=== PATIENT | female | born 1995 | race Caucasian/White ===

== ENCOUNTER 2020-08-27 14:20 | Emergency (ER) | payer OTHER, SELFPAY ==
[2020-08-27 14:25] VITALS: BP 164/92; PULSE 80; RESP 14; O2SAT 99
[2020-08-27 15:07] LABS: SARS-CoV-2 Ag Negative (Negative)
--- NOTE | 2020-08-27 15:19 | ED.URI ---
HPI - URI/Sore Throat General Chief Complaint: Upper Respiratory Infection Stated Complaint: fever body ache cough sore throat Source: patient Mode of arrival: ambulatory Limitations: no limitations History of Present Illness HPI Narrative: Pt presents to ed with fever body aches, sore thraot and myalgias. Pt family and are covid positive. MD elicited complaint: fever, cough and sore throat Onset (ago): minute(s) Exacerbating factors: nothing Relieving factors: nothing Context: sick contacts Associated symptoms: fever, chills, myalgias, headache, sore throat and cough Treatments prior to arrival: acetaminophen Related Data Home Medications Medication Instructions Recorded Confirmed No Home Medications 08/27/20 08/27/20 Allergies Allergy/AdvReac Type Severity Reaction Status Date / Time No Known Allergies Allergy Verified 08/27/20 15:08 Review of Systems Review of Systems: All systems reviewed & are unremarkable except as noted in HPI and below Constitutional: Constitutional: Reports chills, Reports fatigue and Reports fever(s) ENT: Reports sore throat Cardiovascular: Cardiovascular: Reports no additional cardiovascular complaints Respiratory: Respiratory: Denies chest congestion, Reports cough, Denies dyspnea and Denies wheezing Gastrointestinal: Gastrointestinal: Reports no additional gastrointestinal complaints Genitourinary: Genitourinary: Reports no additional female genitourinary complaints Musculoskeletal: Musculoskeletal: Reports myalgias Neurologic: Reports as per HPI Psychiatric: Psychiatric: Reports no additional psychiatric complaints Endocrine: Endocrine: Reports no additional endocrine complaints Hematologic/Lymphatic: Hematologic/Lymphatic: Reports no additional hematologic/lymphatic complaints Allergic/Immunologic: Allergic/Immunologic: Reports no additional allergic/immunologic complaints PMFSH Social History Social History (Updated 08/27/20 @ 15:22 by Ceci Feliciano MD) Smoking packs per day: 0.5 Smoking cigarettes per day: 10.0 Smoking status: Current every day smoker Alcohol intake: never Substance use: never Exam Const: General: healthy appearing, no acute distress and alert Nutritional Appearance: well nourished and thin Orientation/consciousness: patient oriented x3 HENMT: Head: normal to inspection Eyes: Conjunctivae: conjunctivae normal Pupils: Equal, round and reactive pupils present Neck: Neck: normal visual inspection Chest: Chest palpation & inspection: normal inspection of the chest Resp: Effort & Inspection: normal respiratory effort Auscultation: clear to auscultation bilaterally Cardio: Rate: regular rate Rhythm: regular rhythm GI: GI Palp: Yes Soft to palpation, No Tenderness to palpation present (GI) and No Guarding due to palpation present (GI) Auscultation: normal bowel sounds : General: Yes no CVA tenderness Back/Spine/Pelvis: Back: no CVA tenderness Skin: General skin exam: normal color Neuro: General: patient oriented x3 and moves all extremities Gait exam (Neuro): Normal gait present Extrem: General: normal to inspection Psych: Appearance: grossly normal Mental Status: mental status grossly normal Thought content: Yes Normal thought content present Course Vital Signs Vital signs: Vital Signs Pulse Rate 80 08/27/20 14:25 Respiratory Rate 14 08/27/20 14:25 Blood Pressure 164/92 H 08/27/20 14:25 Pulse Oximetry 99 08/27/20 14:25 Pulse Rate 80 08/27/20 14:25 Respiratory Rate 14 08/27/20 14:25 Blood Pressure 164/92 H 08/27/20 14:25 Pulse Oximetry 99 08/27/20 14:25 MDM - URI/Sore Throat Differential Diagnosis Differential diagnosis: Likely upper respiratory infection (COVID is likely ) Lab Data Attestation: I reviewed the patient's lab results. Labs: Lab Results 08/27/20 Range/Units 14:40 SARS-CoV-2 Ag (Rapid) Negative (Negative) Discharg
[2020-08-27 15:20] VITALS: RESP 16
== END 2020-08-27 15:20 | disposition home or self-care (01) ==
PROVIDERS: Emergency Provider Emergency Medicine; PCP Family Medicine
DX: B34.9 Viral infection, unspecified (principal)
CPT/HCPCS: 87426; 99282

== ENCOUNTER 2021-02-24 06:26 | Outpatient (CLI) | payer OTHER, SELFPAY ==
[2021-02-24 06:41] LABS: Hematocrit 43.3 % (35.0-49.0); Hemoglobin 14.3 g/dL (12.0-15.0); Mean Corpuscular Hemoglobin 30.7 pg (27.0-31.0); Mean Corpuscular Volume 92.9 fL (78.0-102.0); Mean Platelet Volume 10.4 fl (9.2-11.8); Platelet Count Result 194 K/mm3 (150-420); Red Blood Count 4.66 M/mm3 (4.20-5.40); Red Cell Distribution Width 12.4 % (11.6-14.4); White Blood Count 8.2 K/mm3 (4.8-10.8)
[2021-02-24 07:35] LABS: Alanine Aminotransferase 18 U/L (14-59); Albumin Level 4.4 g/dL (3.4-5.0); Alkaline Phosphatase 83 U/L (46-116); Anion Gap 9 mmol/L (8-16); Aspartate Amino Transferase 11 U/L (15-37); Bilirubin,Total 0.8 mg/dL (0.00-1.00); Blood Urea Nitrogen 9 mg/dL (7-18); Calcium 9.3 mg/dL (8.5-10.1); Carbon Dioxide 29 mmol/L (21-32); Chloride 101 mmol/L (98-108); Estimated Glomerular Filt Rate > 60; Glucose 103 mg/dL (70-99); Osmolality Calculated 286 mOsm/kg (285-295); Potassium 4.3 mmol/L (3.5-5.1); Sodium 139 mmol/L (136-145); Total Protein 7.2 g/dL (6.4-8.2)
== END 2021-02-24 06:27 | disposition home or self-care (01) ==
LOC: CHSLAB 06:29
PROVIDERS: PCP Family Medicine; Visit Provider Family Medicine
DX: F17.210 Nicotine dependence, cigarettes, uncomplicated (principal)
CPT/HCPCS: 36415; 80053; 85027

== ENCOUNTER 2021-04-18 13:42 | Outpatient (CLI) | payer OTHER, SELFPAY ==
--- NOTE | 2021-04-18 13:51 | PC.NURSE ---
ambulatory for IV meds for migrane, taken to room 201 for infusion
[2021-04-18] MEDS: diphenhydrAMINE HCl INJ 50 MG/ML VIAL IV PUSH (14:06)
[2021-04-18] MEDS: PROCHLORPERAZINE EDISYLATE 10 MG/2 ML VIAL IV PUSH (14:06)
[2021-04-18] MEDS: SODIUM CHLORIDE 0.9% IV 1,000 ML 1000 ML IVPB (14:06)
== END 2021-04-18 13:43 | disposition home or self-care (01) ==
LOC: CHSTREATRM 13:45
PROVIDERS: PCP Family Medicine; Visit Provider Family Medicine
DX: G43.909 Migraine, unspecified, not intractable, without status migrainosus (principal)
CPT/HCPCS: 96361; 96374; 96375; J0780

== ENCOUNTER 2021-10-16 13:45 | Outpatient (CLI) | payer OTHER, SELFPAY ==
[2021-10-16 15:02] LABS: SARS-CoV-2 Ag Negative (Negative)
== END 2021-10-16 13:46 | disposition home or self-care (01) ==
PROVIDERS: PCP Family Medicine; Visit Provider Family Medicine
DX: Z20.822 Contact with and (suspected) exposure to COVID-19 (principal)
CPT/HCPCS: 87426; C9803

== ENCOUNTER 2022-03-31 13:10 | Outpatient (NON) | payer OTHER, SELFPAY | END 2022-03-31 13:11 | disposition home or self-care (01) | LOC: CHSLAB 13:15 | PROVIDERS: PCP Nurse Practitioner Family; Visit Provider Nurse Practitioner Family | DX: Z12.4 Encounter for screening for malignant neoplasm of cervix (principal) | CPT/HCPCS: 87624; 87625; 88141; 88175; G0145 ==

== ENCOUNTER 2022-05-12 10:28 | Outpatient (CLI) | payer OTHER, SELFPAY ==
--- NOTE | ~2022-05-12 | US_ITS ---
EXAMINATION: US pelvic complete w TV DATE: 05/12/2022 12:12 INDICATION: Pelvic pain. TECHNIQUE: Multiple transabdominal and transvaginal sonographic images of the pelvis were obtained. COMPARISON: None. FINDINGS: TRANSABDOMINAL ULTRASOUND: The uterus measures 8.3 x 5.2 x 3.9 cm. There is physiologic free fluid in the pelvis. TRANSVAGINAL ULTRASOUND: The endometrial complex measures 4 mm in thickness. There is an intrauterine device in expected posit ion. The right ovary measures 4.7 x 2.4 x 3.2 cm. The left ovary measures 3.7 x 2.0 x 2.7 cm. There i s normal vascular flow in the ovaries. IMPRESSION: 1. Intrauterine device in expected position. Reviewed, dictated and finalized at location A.
== END 2022-05-12 10:29 | disposition home or self-care (01) ==
LOC: CHSIMG 10:31
PROVIDERS: PCP Family Medicine; Visit Provider Nurse Practitioner Family
DX: R10.30 Lower abdominal pain, unspecified (principal)
CPT/HCPCS: 76830; 76856

== ENCOUNTER 2022-05-12 17:37 | Outpatient (CLI) | payer OTHER, SELFPAY ==
[2022-05-12 17:51] LABS: Add Urine Microscopic? NO; Appearance Urine Clear (Clear); Bilirubin Urine Negative (Negative); Blood Urine Negative (Negative); Color Urine Yellow (Yellow); Glucose Urine UA Negative (Negative); Ketones Urine Negative (Negative); Leukocyte Esterase Ur Negative (Negative); Nitrate Urine Negative (Negative); Protein Urine Negative (Negative); Specific Grav Ur 1.015 (1.010-1.020)
== END 2022-05-12 17:38 | disposition home or self-care (01) ==
LOC: CHSLAB 17:39
PROVIDERS: PCP Family Medicine; Visit Provider Nurse Practitioner Family
DX: R10.30 Lower abdominal pain, unspecified (principal)
CPT/HCPCS: 81003

== ENCOUNTER 2022-06-23 02:01 | Day surgery (SDC) | payer OTHER, SELFPAY ==
[2022-06-16 17:40] VITALS: BMI 18.1
--- NOTE | 2022-06-16 17:59 | PC.NURSE ---
Report to the Outpatient Waiting Room, entrance under the green pavilion located off [facility], at time 0600 on date 06/23/22. OR Time: 0730. Time changes happen often and if your time is changed the preop area will call you the afternoon before. - You and your visitor will be asked to self-screen and do not enter if you have any COVID symptoms. - Only one visitor and NO children visitors are allowed at this time. - The patient visitor is requested to leave or wait in car when not with patient due to restrictions. - A mask is required within the hospital. Patients may have clear liquids (water, carbonated beverages, clear teas, apple juice) until 3 hours prior to surgery with a maximum of 20 ounces 0430. - No food from midnight until time of surgery - Infants may have breast milk until 4 hours before surgery, formula 6 hours prior to surgery. - Children will be allowed to drink immediately following surgery. If applicable, please bring a bottle or sippy cup to assist with drinking. Juice, water, soda, and popsicles are readily available. For infants on formula, please bring formula the day of surgery. Pacifiers are allowed. Take the following medications with a SIP of water the morning of surgery: bupropion, hydroxyzine, tylenol Medications to discontinue per physician n/a Date to take last dose check with Dr. Smith regarding ibuprofen Please no make-up, nail kyrgyz, hairspray, perfume, deodorant, or body powder the day of surgery. No jewelry (including any body piercings) or valuables the day of surgery, leave them at home. Please take a shower or bath the night before, or the morning of, surgery with an antibacterial soap. Wear comfortable, loose fitting clothing. Children are encouraged to wear pajamas. - Jewelry must be removed prior to entering the operating room. Rings and piercings that are not removed may be cut off. - The hospital will not accept responsibility for valuables. - Please leave all valuables, including medications, at home the day of surgery. If you are going home after surgery, a licensed regional truck driver must drive you home. - NO public transportation without another adult. - We recommend that an adult stay with you for 24 hours following discharge. - We also recommend that you do not drive, make important decision, drink alcoholic beverages, or take any drugs that were not prescribed by your health care provider for at least 24 hours after your discharge time. For Pediatric surgeries, we recommend two adults accompany the child home (only one inside the building at this time). Follow any additional instructions given to you from your surgeon. If you or anyone in your household have experienced Covid symptoms in the past week, please notify your surgeon or the nurse liaison at the phone number below for possible testing. Telephone instructions given to Susan Kuo and asked if any additional questions and then verbalized understanding. Patient advised to call surgeon office or pre surgery nurse liaison [phone] if any additional questions.
--- NOTE | 2022-06-22 12:25 | P.PNAN_ITS ---
Anes - Initial Pre Proc Eval Procedure: Operation Date: 06/23/22 07:30 Proposed Procedures p Loop Electrical Excision Procedure - Bren Smith MD Date/Time: 06/22/22 12:25 Surgeon: Bren Smith MD Pre Op Diagnosis: ADELAIDA 1 Patient Data Age: 26 Gender: F Height: 1.73 m Weight: 54 kg Allergies Allergy/AdvReac Type Severity Reaction Status Date / Time No Known Allergies Allergy Verified 06/16/22 17:35 Home Medications Medication Instructions Recorded Confirmed Type levonorgestrel 20 mcg/24 hours (7 1 device intrauterine ONCE 12/11/20 06/16/22 History yrs) 52 mg intrauterine device (Mirena) bupropion HCl 150 mg tablet,12 hr 150 mg PO BID #60 tabs 04/27/22 06/16/22 Rx sustained-release hydroxyzine HCl 25 mg tablet 25 mg PO BID PRN Anxiety #60 tabs 04/27/22 06/16/22 Rx acetaminophen 325 mg capsule 1,000 mg PO DAILY PRN Migraine 06/16/22 06/16/22 History (Tylenol) Headache ibuprofen 200 mg tablet 600 mg PO Q6H PRN Migraine Headache 06/16/22 06/16/22 History Patient hx anesthesia problems: none Family hx anesthesia problems: none Results Review: All pre-operative results and documents have been reviewed as part of the pre- operative evaluation. [facility] Past Medical History Medical History Anxiety HPV test positive LGSIL (low grade squamous intraepithelial dysplasia) Migraine Vaginal delivery x 2 Surgical History Surgical History History of colposcopy with cervical biopsy Family History Family History Grandparent History of kidney cancer Diabetes mellitus COPD (chronic obstructive pulmonary disease) CHF (congestive heart failure) Social History Social History Smoking packs per day: 0.5 Smoking cigarettes per day: 10.0 Years smoked: 6 Smoking pack-years: 3.00 Smoking status: Current every day smoker Tobacco type: cigarettes Alcohol intake: current Drinks per week: 2 Substance use: never Substance use type: does not use Living arrangements: with family Spiritual care concerns: No Agree to blood products: Yes Anes - Eval Final PreProcedure Day of Procedure 06/22/22 12:25 Patient weight: normal Heart: regular rate and rhythm Lungs: clear to auscultation and normal air movement Airway: Mallampati scale class II Neurological: alert and oriented Last oral intake: >/= 8 hours ASA classification: II Emergent: no Anesthetic plan: proceed Anesthesia type and monitoring: general GIVS Results Review: All pre-operative results and documents have been reviewed as part of the pre- operative evaluation. Informed Consent: The patient's anesthetic plan and its attendant risks and benefits were discussed with the patient/family/POA. Questions were solicited and answers provided to the satisfaction of the patient/family/POA.
--- NOTE | 2022-06-23 03:45 | PM.IMHP ---
H&P: HPI History of Present Illness Date/Time: 06/23/22 03:45 Chief Complaint: Cervical dysplasia Narrative: Patient is a 26yo woman with a long history of abnormal pap smears since 2017. Had had multiple colposcopies and biopsies. Most recent colposcopic biopsies showed at least ADELAIDA 1, however, a higher grade lesion could not be excluded. Discussion had with patient regarding results. Decision made to proceed with LEEP in an effort to treat persistent cervical dysplasia. In general, patient doing well today without complaints. Review of Systems Review of Systems: All systems reviewed & are unremarkable except as noted in HPI and below Constitutional: Constitutional: Reports as per HPI and Reports no additional constitutional complaints Eyes: Eyes: Reports as per HPI and Reports no additional eye complaints ENT: Reports system reviewed and no additional complaints, except as documented and Reports as per HPI Cardiovascular: Cardiovascular: Reports as per HPI and Reports no additional cardiovascular complaints Respiratory: Respiratory: Reports as per HPI and Reports no additional respiratory complaints Gastrointestinal: Gastrointestinal: Reports as per HPI and Reports no additional gastrointestinal complaints Genitourinary: Genitourinary: Reports no additional female genitourinary complaints and Reports as per HPI Musculoskeletal: Musculoskeletal: Reports no additional musculoskeletal complaints and Reports as per HPI Integumentary/Breasts: Skin/Breast: Reports system reviewed and no additional complaints, except as docu and Reports as per HPI Neurologic: Reports system reviewed and no additional complaints, except as documented and Reports as per HPI Psychiatric: Psychiatric: Reports no additional psychiatric complaints and Reports as per HPI Endocrine: Endocrine: Reports no additional endocrine complaints and Reports as per HPI Hematologic/Lymphatic: Hematologic/Lymphatic: Reports no additional hematologic/lymphatic complaints and Reports as per HPI Allergic/Immunologic: Allergic/Immunologic: Reports no additional allergic/immunologic complaints and Reports as per HPI PMF Past Medical History Medical History Anxiety HPV test positive LGSIL (low grade squamous intraepithelial dysplasia) Migraine Vaginal delivery x 2 Surgical History Surgical History History of colposcopy with cervical biopsy Family History Family History Grandparent History of kidney cancer Diabetes mellitus COPD (chronic obstructive pulmonary disease) CHF (congestive heart failure) Social History Social History Smoking packs per day: 0.5 Smoking cigarettes per day: 10.0 Years smoked: 6 Smoking pack-years: 3.00 Smoking status: Current every day smoker Tobacco type: cigarettes Alcohol intake: current Drinks per week: 2 Substance use: never Substance use type: does not use Living arrangements: with family Spiritual care concerns: No Agree to blood products: Yes Meds Home Medications and Allergies Home Medications Medication Instructions Recorded Confirmed Type levonorgestrel 20 mcg/24 hours (7 1 device intrauterine ONCE 12/11/20 06/23/22 History yrs) 52 mg intrauterine device (Mirena) bupropion HCl 150 mg tablet,12 hr 150 mg PO BID #60 tabs 04/27/22 06/23/22 Rx sustained-release hydroxyzine HCl 25 mg tablet 25 mg PO BID PRN Anxiety #60 tabs 04/27/22 06/23/22 Rx acetaminophen 325 mg capsule 1,000 mg PO DAILY PRN Migraine 06/16/22 06/23/22 History (Tylenol) Headache ibuprofen 200 mg tablet 600 mg PO Q6H PRN Migraine Headache 06/16/22 06/23/22 History Allergies Allergy/AdvReac Type Severity Reaction Status Date / Time No Known Allergies Allergy Verified 06/23/22 07:18
[2022-06-23 06:30] VITALS: BP 122/81; PULSE 70; RESP 16; TEMP 36.7; O2SAT 98
[2022-06-23] MEDS: LACTATED RINGERS 1,000 ML 30 ML IV CONT (06:30)
--- NOTE | 2022-06-23 07:26 | WPDHPUPDATE1 ---
History and Physical Update Update Date/Time: 06/23/22 07:26 History and Physical has been reviewed, including an updated exam of the patient. There are NO changes in the patient's condition. Risks, benefits, and alternatives have been discussed and questions answered. Patient agrees to proceed with procedure.
[2022-06-23] MEDS: IODINE/POTASSIUM IODIDE 8 ML SOLUTION TOPICAL (07:46)
[2022-06-23] MEDS: LIDOCAINE HCL 1% PF 30 ML VIAL INFILTRATE (07:52)
[2022-06-23 08:05] VITALS: BP 98/64; PULSE 64; RESP 15; O2SAT 100
--- NOTE | 2022-06-23 08:10 | W.PM.PROC2 ---
Procedure Note - Detailed Date of Procedure 06/23/22 Pre-op Diagnosis Persistent low grade cervical dysplasia Post-op Diagnosis Same Procedure Performed Loop electrosurgical excision procedure Surgeon Bren Smith MD Anesthesia MAC Findings narrow area of non-uptake around cervical os, IUD strings visualized Description of Procedure The patient was taken to the operating room where she self-transferred to the operating room table. She was placed in dorsal supine position. Anesthesia was administered and found to be adequate. The patient was repositioned in dorsal lithotomy position and prepped and draped in the usual sterile fashion. A red rubber catheter was used to drain the bladder of 75 cc of clear urine. A coated bivalve speculum was inserted into the vagina and suction tubing was connected to the speculum. The cervix was well visualized. A paracervical block was performed with 1% lidocaine.? 5 cc of lidocaine was administered on both sides for a total of 10 cc. Lugol's solution was applied across the entire surface of the cervix. A narrow area of non-uptake was noted around cervical os. IUD strings were visualized. A medium-sized loop was selected and connected to the electrical generator. This loop was used to make two passes.? The first pass excised the inferior portion of the anterior surface of the cervix. Specimen was removed and set aside. The second pass excised the superior portion of the anterior surface of the cervix. Specimen was removed and set aside. An endocervical curettage was performed. Rollerball cautery was used to cauterize the entire excision site and margins of the excision bed. No bleeding was noted. The procedure was deemed complete. The vagina was dried and the speculum was removed. The superior portion of the cervix was tagged at 12:00 with a suture. The inferior portion of the cervix was tagged at 6:00 with a suture. Specimen were prepared to be sent to pathology for analysis. The patient was cleansed and dried.? She was taken out of the dorsal lithotomy position and awakened from anesthesia without difficulty.? She was transported to the recovery room in stable condition.? All sponge and instrument counts were correct at the end of the procedure. Estimated Blood Loss 0 IV Fluids 500 Urine Output 75 Drains No Packing No Pathology Yes (superior portion of anterior surface of cervix tagged at 12:00, inferior portion of anterior surface of cervix tagged at 6:00, endocervical curettings) Complications No immediate complications Condition Stable Disposition Same day [facility] Billing Surgery - Charge Forward: Surgery Billing
[2022-06-23 08:35] VITALS: BP 124/90; PULSE 61; RESP 14
[2022-06-23] MEDS: oxyCODONE HCL (*CRX) 5 MG TAB IR PO (08:53)
[2022-06-23 09:05] VITALS: BP 124/84; PULSE 61; RESP 14
--- NOTE | 2022-06-23 10:38 | SUR.PREOP ---
0600: PT STATES TK TYLENOL ES THIS AM @ 0330. NO PREOP TYLENOL GIVEN
== END 2022-06-23 09:15 | disposition home or self-care (01) ==
PROVIDERS: PCP Family Medicine; Visit Provider Student in an Organized Health Care Education/Training Program
PROC: 0UBC7ZZ Excision of Cervix, Via Natural or Artificial Opening (ICD-10-PCS; CPT 57522; principal; 2022-06-23 07:30)
DX: N87.0 Mild cervical dysplasia (principal); F41.9 Anxiety disorder, unspecified; F17.210 Nicotine dependence, cigarettes, uncomplicated
CPT/HCPCS: 57522; 88305; 88307; A9270; J2250; J2704; J3010; J7120

== ENCOUNTER 2022-06-29 15:47 | Emergency (ER) | payer OTHER, SELFPAY ==
[2022-06-29 15:49] VITALS: BP 154/87; PULSE 76; RESP 16; TEMP 37.2; O2SAT 100
--- NOTE | 2022-06-29 17:32 | ED.FEMALEGU ---
HPI - Female Genitourinary General Chief complaint: Vaginal Bleeding <Genet Ortiz PA-C - Last Filed: 06/29/22 23:35> Stated complaint: vag bleed <Genet Ortiz PA-C - Last Filed: 06/29/22 23:35> Time Seen by Provider: 06/29/22 16:55 <Genet Ortiz PA-C - Last Filed: 06/29/22 23:35> History of Present Illness HPI Narrative: Patient is a 26-year-old female here for evaluation of heavy vaginal bleeding. Patient had a LEEP procedure for abnormal cells [address] Smith[address] She was seen in same-day for heavy vaginal bleeding after the procedure, Monsel solution was applied which improved the bleeding. Patient states since then, she has had coffee-ground bleeding, but yesterday she started passing large blood clots, and today she has saturated a menstrual pad every hour. She denies any lightheadedness, weakness, abdominal pain, nausea, vomiting, fevers or chills. She contacted Dr. Smith's office who recommended ED evaluation as the office is closed today. <Genet Ortiz PA-C - Last Filed: 06/29/22 23:35> Related Data Home medications: Home Medications Medication Instructions Recorded Confirmed levonorgestrel 20 mcg/24 hours (8 1 device intrauterine ONCE 12/11/20 06/23/22 yrs) 52 mg intrauterine device (Mirena) acetaminophen 325 mg capsule 1,000 mg PO DAILY PRN Migraine 06/16/22 06/23/22 (Tylenol) Headache ibuprofen 200 mg tablet 600 mg PO Q6H PRN Migraine Headache 06/16/22 06/23/22 <Genet Ortiz PA-C - Last Filed: 06/29/22 23:35> Allergies/Adverse reactions: Allergies Allergy/AdvReac Type Severity Reaction Status Date / Time No Known Allergies Allergy Verified 06/29/22 17:36 <AMITA Price Last Filed: 06/29/22 23:35> Review of Systems Review of Systems: Gen.: Denies fevers or chills Eyes: Denies eye pain or visual change ENT: Denies congestion Respiratory: Denies shortness of breath or cough CV: Denies chest pain or palpitations GI: Denies abdominal pain nausea, emesis or diarrhea reports vaginal bleeding. Denies burning, urgency, frequency or hematuria Musculoskeletal: Denies back pain or muscle pain Neuro: Denies numbness, tingling, weakness or focal weakness Skin: Denies rash Except as documented, all other systems reviewed and negative <Genet Ortiz PA-C - Last Filed: 06/29/22 23:35> [facility] Past Medical History Medical History: Medical History Anxiety HPV test positive LGSIL (low grade squamous intraepithelial dysplasia) Migraine Vaginal delivery x 2 <Genet Ortiz PA-C - Last Filed: 06/29/22 23:35> Surgical History Surgical History: Surgical History History of colposcopy with cervical biopsy <Genet Ortiz PA-C - Last Filed: 06/29/22 23:35> Family History Family History: Family History Grandparent History of kidney cancer Diabetes mellitus COPD (chronic obstructive pulmonary disease) CHF (congestive heart failure) <Genet Ortiz PA-C - Last Filed: 06/29/22 23:35> Social History Social History: Social History Smoking packs per day: 0.5 Smoking cigarettes per day: 10.0 Years smoked: 6 Smoking pack-years: 3.00 Smoking status: Current every day smoker Tobacco type: cigarettes Alcohol intake: current Drinks per week: 2 Substance use: never Substance use type: does not use Gender identity (if verbalized by the patient): Female Sexual Orientation (if Verbalized by the Patient): Straight or Heterosexual Spiritual care concerns: No Agree to blood products: Yes <AMITA Price Last Filed: 06/29/22 23:35> Exam Narrative: APPEARANCE: Well appearing, no pain in distress, well
[2022-06-29 17:39] LABS: Basophils Percent Auto 0.3 % (0.2-1.2); Eosinophils Absolute Auto 0.1 K/mm3 (0-0.3); Eosinophils Percent Auto 0.8 % (0-4.4); Hematocrit 40.9 % (37.0-47.0); Hemoglobin 13.6 g/dL (12.0-15.0); Immature Granulocyte Absolute 0.04 K/mm3 (0.00-0.031); Immature Granulocyte Percent A 0.4 % (0-0.5); Lymphocytes Absolute Auto 2.83 K/mm3 (0.9-3.2); Lymphocytes Percent Auto 28.4 % (18.3-44.2); Mean Corpuscular HGB Conc 33.3 g/dl (32-36); Mean Corpuscular Hemoglobin 31.8 pg (26-34); Mean Corpuscular Volume 95.6 fl (80-100); Mean Platelet Volume 11.5 fl (7.4-10.4); Monocytes Absolute Auto 0.5 K/mm3 (0.1-0.6); Monocytes Percent Auto 5.2 % (2.6-8.5); Neutrophils Absolute Auto 6.5 K/mm3 (1.3-6.7); Neutrophils Percent Auto 64.9 % (45.5-73.1); Platelet Count Result 185 k/mm3 (150-375); Red Blood Count 4.28 M/mm3 (4.2-5.4); Red Cell Distribution Width 12.1 % (11.5-14.5)
[2022-06-29 17:53] LABS: Alanine Aminotransferase 17 U/L (6-35); Albumin Level 4.8 g/dL (3.5-5.1); Alkaline Phosphatase 70 U/L (38-126); Anion Gap 9 mmol/L (8-16); Aspartate Amino Transferase 22 U/L (14-36); Bilirubin,Total 0.4 mg/dL (0.2-1.3); Blood Urea Nitrogen 7 mg/dL (7-17); Calcium 9.3 mg/dL (8.4-10.2); Carbon Dioxide 27 mmol/L (22-30); Chloride 107 mmol/L (98-107); Estimated CRCL calculation 103 ml/min; Estimated Glomerular Filt Rate > 60; Glucose 78 mg/dL (65-110); Potassium 4.2 mmol/L (3.4-5.0); Sodium 143 mmol/L (137-145)
--- NOTE | 2022-06-29 19:26 | WPDCN ---
Assessment and Plan Assessment and plan (1) Vaginal bleeding: Code(s): N93.9 - Abnormal uterine and vaginal bleeding, unspecified Status: Acute Assessment and Plan: s/p LEEP eschar likely sloughed off causing minimal oozing that has been persistent Hgb stable Monsel's applied with hemostasis noted pt advised to refrain from going to work tonight will f/u with patient in AM pain medication PRN cramping Thank you for allowing me to participate in the care of this patient. If you have any further questions, please let me know. HPI Data of Consult Date/Time: 06/29/22 19:26 Primary Care Provider: Teja Gutierrez, Consult Narrative Narrative: Susan Kuo is a 26 year old female s/p LEEP on 06/23/22 who presented to ED with complaints of heavy vaginal bleeding. Patient experienced similar episode shortly after discharge from same day surgery on 06/23/22 and was seen in office later that day. An area of bleeding was noted at approx. 8:00. Monsel's was applied and bleeding subsided. Patient reports doing well until 06/27 when she reports recurrence of bleeding. Bleeding was initially light, however, became heavier with passage of clots yesterday and today. She reports changing numerous pads. She also reports cramping. She did return to work and reports heavy lifting while at work. Denies any intercourse. Review of Systems Review of Systems: All systems reviewed & are unremarkable except as noted in HPI and below Constitutional: Constitutional: Reports as per HPI and Reports no additional constitutional complaints Genitourinary: Genitourinary: Reports no additional female genitourinary complaints and Reports as per HPI [facility] Past Medical History Medical History Anxiety HPV test positive LGSIL (low grade squamous intraepithelial dysplasia) Migraine Vaginal delivery x 2 Surgical History Surgical History History of colposcopy with cervical biopsy Family History Family History Grandparent History of kidney cancer Diabetes mellitus COPD (chronic obstructive pulmonary disease) CHF (congestive heart failure) Social History Social History Smoking packs per day: 0.5 Smoking cigarettes per day: 10.0 Years smoked: 6 Smoking pack-years: 3.00 Smoking status: Current every day smoker Tobacco type: cigarettes Alcohol intake: current Drinks per week: 2 Substance use: never Substance use type: does not use Gender identity (if verbalized by the patient): Female Sexual Orientation (if Verbalized by the Patient): Straight or Heterosexual Spiritual care concerns: No Agree to blood products: Yes Meds Home Medications and Allergies Home Medications Medication Instructions Recorded Confirmed Type levonorgestrel 20 mcg/24 hours (8 1 device intrauterine ONCE 12/11/20 06/23/22 History yrs) 52 mg intrauterine device (Mirena) bupropion HCl 150 mg tablet,12 hr 150 mg PO BID #60 tabs 04/27/22 06/23/22 Rx sustained-release hydroxyzine HCl 25 mg tablet 25 mg PO BID PRN Anxiety #60 tabs 04/27/22 06/23/22 Rx acetaminophen 325 mg capsule 1,000 mg PO DAILY PRN Migraine 06/16/22 06/23/22 History (Tylenol) Headache ibuprofen 200 mg tablet 600 mg PO Q6H PRN Migraine Headache 06/16/22 06/23/22 History hydrocodone 5 mg-acetaminophen 325 1 tablet PO Q6H PRN pain #10 tabs 06/29/22 Rx mg tablet Allergies Allergy/AdvReac Type Severity Reaction Status Date / Time No Known Allergies Allergy Verified 06/29/22 17:36 Vital Signs Vital Signs - 24 hr 06/29/22 15:49 Temperature 37.2 C Pulse Rate 76 Respiratory Rate 16 Blood Pressure 154/87 H Pulse Oximetry 100 Oxygen Delivery Room Air Exam Const: General: cooperative, healthy appearing
[2022-06-29] MEDS: HYDROcodone/acetaminophen (*CRX) 5-325 MG TABLET 1 TAB PO (19:42)
== END 2022-06-29 19:55 | disposition home or self-care (01) ==
PROVIDERS: Physician Assistant; Emergency Provider General Practice; PCP Family Medicine
DX: N93.9 Abnormal uterine and vaginal bleeding, unspecified (principal); Z98.890 Other specified postprocedural states; F17.210 Nicotine dependence, cigarettes, uncomplicated
CPT/HCPCS: 36415; 80053; 81025; 85025; 86850; 86900; 86901; 99284; A9270

== ENCOUNTER 2022-08-26 15:00 | Outpatient (CLI) | payer OTHER, SELFPAY ==
[2022-09-02 10:31] LABS: TB Skin Test Site Left Arm
[2022-09-04 13:30] LABS: TB Skin Test Interpretation Unable to Read (Negative)
== END 2022-08-26 15:01 | disposition home or self-care (01) ==
LOC: CHSLAB 15:01
PROVIDERS: PCP Family Medicine; Visit Provider Family Medicine
DX: Z02.1 Encounter for pre-employment examination (principal)
CPT/HCPCS: 36415; 86580

== ENCOUNTER 2022-09-28 11:34 | Outpatient (CLI) | payer OTHER, SELFPAY ==
[2022-09-28 13:39] LABS: HIV 1/2 Ab P24 Ag Result Negative (Negative)
[2022-09-28 14:07] LABS: Hepatitis B Surface Antigen Negative (Negative)
[2022-09-28 14:25] LABS: Hepatitis C Virus Antibody Negative (Negative)
[2022-09-29 10:16] LABS: Rapid Plasma Reagin Non-Reactive (NonReactive)
== END 2022-09-28 11:35 | disposition home or self-care (01) ==
LOC: ANHLAB 11:36
PROVIDERS: PCP Family Medicine; Visit Provider Obstetrics & Gynecology
DX: Z20.2 Contact with and (suspected) exposure to infections with a predominantly sexual mode of transmission (principal)
CPT/HCPCS: 36415; 86592; 86703; 86803; 87340; G0432

== ENCOUNTER 2023-04-03 17:30 | Emergency (ER) | payer OTHER, SELFPAY ==
[2023-04-03 17:30] VITALS: BP 145/97; PULSE 73; RESP 18; TEMP 36.9; O2SAT 99
--- NOTE | 2023-04-03 17:43 | ED.HA ---
HPI - Headache General Chief Complaint: Unspecified Stated Complaint: migraine Source: patient Mode of arrival: ambulatory Limitations: no limitations History of Present Illness HPI Narrative: 27-year-old female, smoker with a history of anxiety, migraine, cervical dysplasia status post LEEP presents to the ER with a 6 hour history of -- bilateral retro-orbital and occipital pain -- nausea with multiple episodes of vomiting -- complains of photophobia no fever. No focal neuro deficits. This episode of headache is similar to her previous episodes of headache. MD elicited complaint: headache Onset (ago): hour(s) ( Started 6 hours a) Onset description: gradually Location: frontal and occipital Quality & Timing: throbbing Exacerbating factors: none Relieving factors: nothing Context: occurred at rest Associated symptoms: nausea and vomiting Treatments prior to arrival: none Related Data Home Medications Medication Instructions Recorded Confirmed levonorgestrel 21 mcg/24 hours (8 1 device intrauterine ONCE 12/11/20 04/03/23 yrs) 52 mg intrauterine device (Mirena) Allergies Allergy/AdvReac Type Severity Reaction Status Date / Time No Known Allergies Allergy Verified 08/26/22 08:05 Review of Systems Review of Systems: All systems reviewed & are unremarkable except as noted in HPI and below Constitutional: Constitutional: Reports as per HPI and Reports no additional constitutional complaints Eyes: Eyes: Reports as per HPI and Reports no additional eye complaints ENT: Reports system reviewed and no additional complaints, except as documented and Reports as per HPI Cardiovascular: Cardiovascular: Reports as per HPI and Reports no additional cardiovascular complaints Respiratory: Respiratory: Reports as per HPI and Reports no additional respiratory complaints Gastrointestinal: Gastrointestinal: Reports as per HPI, Reports no additional gastrointestinal complaints, Reports nausea and Reports vomiting Genitourinary: Genitourinary: Reports no additional female genitourinary complaints Musculoskeletal: Musculoskeletal: Reports no additional musculoskeletal complaints Integumentary/Breasts: Skin/Breast: Reports system reviewed and no additional complaints, except as docu and Reports as per HPI Neurologic: Reports system reviewed and no additional complaints, except as documented and Reports as per HPI Psychiatric: Psychiatric: Reports no additional psychiatric complaints and Reports as per HPI Endocrine: Endocrine: Reports no additional endocrine complaints and Reports as per HPI Hematologic/Lymphatic: Hematologic/Lymphatic: Reports no additional hematologic/lymphatic complaints and Reports as per HPI Allergic/Immunologic: Allergic/Immunologic: Reports no additional allergic/immunologic complaints and Reports as per HPI PMFSH Past Medical History Medical History Anxiety Dysplasia of cervix, low grade (ADELAIDA 1) HPV test positive LGSIL (low grade squamous intraepithelial dysplasia) Migraine Vaginal delivery x 2 Surgical History Surgical History History of colposcopy with cervical biopsy S/P LEEP (loop electrosurgical excision procedure) 06/23/22 Family History Family History Grandparent History of kidney cancer Diabetes mellitus COPD (chronic obstructive pulmonary disease) CHF (congestive heart failure) Social History Social History Smoking packs per day: 0.5 Smoking cigarettes per day: 10.0 Years smoked: 6 Smoking pack-years: 3.00 Smoking status: Current every day smoker Tobacco type: cigarettes Alcohol intake: current Drinks per week: 2 Substance use: never Substance use type: does not use Lack of Transportation: No Lack of Food: Never True C
[2023-04-03] MEDS: ONDANSETRON HCL ODT 4 MG TABLET PO (17:57)
[2023-04-03] MEDS: SUMAtriptan SUCCINATE 6 MG/0.5 ML VIAL SUB-Q (17:57)
[2023-04-03 18:19] VITALS: BP 130/87; PULSE 88; RESP 20; TEMP 36.6; O2SAT 99
== END 2023-04-03 18:24 | disposition home or self-care (01) ==
PROVIDERS: Emergency Provider Internal Medicine Critical Care Medicine; PCP Family Medicine
DX: G43.909 Migraine, unspecified, not intractable, without status migrainosus (principal); F17.210 Nicotine dependence, cigarettes, uncomplicated
CPT/HCPCS: 96372; 99283; A9270; J3030

== ENCOUNTER 2023-05-21 12:57 | Outpatient (CLI) | payer OTHER, SELFPAY ==
[2023-05-21 14:06] LABS: Free T4 Free Thyroxine 0.87 ng/dL (0.76-1.46); Thyroid Stimulating Hormone 1.02 uIU/mL (0.36-3.74)
== END 2023-05-21 12:58 | disposition home or self-care (01) ==
LOC: CHSLAB 12:59
PROVIDERS: PCP Family Medicine; Visit Provider Obstetrics & Gynecology
DX: E04.9 Nontoxic goiter, unspecified (principal)
CPT/HCPCS: 36415; 84439; 84443

== ENCOUNTER 2023-05-25 07:32 | Outpatient (CLI) | payer OTHER, SELFPAY ==
--- NOTE | ~2023-05-25 | US_ITS ---
EXAMINATION: US thyroid DATE: 05/25/2023 07:52 INDICATION: Enlarged thyroid TECHNIQUE: Multiple ultrasound images of the thyroid were obtained. COMPARISON: None. FINDINGS: The right thyroid lobe measures 6.3 x 1.8 x 1.9 cm. The left thyroid lobe measures 5.9 x 2.0 x 1.9 c m. Thyroid isthmus measures 4 mm in thickness on the left and 6 mm on the right. Benign 4 mm anechoic TI RADS 1 cystic lesion at the right thyroid lobe. There is heterogeneous echogenicity with coarsene d echotexture throughout the thyroid. IMPRESSION: 1. Enlarged thyroid with heterogeneous echogenicity and coarsened echotexture which can be seen with thyroiditis. 2. Benign 4 mm TI-RADS 1 cystic nodule in the right thyroid lobe which requires no further follow-up. Reviewed, dictated and finalized at location A. IMPRESSION: 1. Enlarged thyroid with heterogeneous echogenicity and coarsened echotexture w hich can be seen with thyroiditis. 2. Benign 4 mm TI-RADS 1 cystic nodule in the right thyroid lobe which requires no further follow-up.
== END 2023-05-25 07:33 | disposition home or self-care (01) ==
LOC: CHSIMG 07:34
PROVIDERS: PCP Family Medicine; Visit Provider Obstetrics & Gynecology
DX: E04.9 Nontoxic goiter, unspecified (principal)
CPT/HCPCS: 76536

== ENCOUNTER 2023-10-20 19:25 | Emergency (ER) | payer OTHER, SELFPAY ==
[2023-10-20 19:33] VITALS: BP 123/78; PULSE 65; RESP 18; TEMP 36.4; O2SAT 100
--- NOTE | 2023-10-20 19:33 | ED.GENADULT ---
HPI - General Adult General Chief complaint: Extremity Problem,Nontraumatic Stated complaint: RIght Wrist Pain Time Seen by Provider: 10/20/23 19:33 Source: patient, RN notes reviewed and old records reviewed Mode of arrival: ambulatory Limitations: no limitations History of Present Illness HPI narrative: 27 year old female who presents to [facility] care with complaints of pain to her right wrist across posterior aspect radiating up arm to elbow area on ulna side for the past 1 hour.. Patient reports that she does repetitive movement of her hands and wrists at work, denies any specific trauma.Patient reports that she was lifting boxes at work when her pain started. Patient has not taken any OTC medication for her discomfort.Patient has full mobility of her right wrist with some discomfort no obvious deformity noted strong right radial pulse with nail bed blanching briskly right fingers. MD complaint: right wrist pain Onset (ago): hour(s) (1) Location: right and upper extremity (wrist) Severity scale (1-10): 7 Treatments prior to arrival: none Related Data Home Medications Medication Instructions Recorded Confirmed levonorgestrel 21 mcg/24 hours (8 1 device intrauterine ONCE 05/21/23 06/30/23 yrs) 52 mg intrauterine device (Mirena) Allergies Allergy/AdvReac Type Severity Reaction Status Date / Time No Known Allergies Allergy Verified 06/30/23 14:12 Review of Systems Review of Systems: CONSTITUTIONAL: Denies fever, chills, or sweats. EYES: Denies visual changes, redness, or discharge. ENT: Denies rhinorrhea, congestion, sore throat, or otalgia. CARDIOVASCULAR: Denies chest pain, palpitations, or edema. RESPIRATORY: Denies cough or dyspnea. GASTROINTESTINAL: Denies abdominal pain, nausea, vomiting, or diarrhea. GENITOURINARY: Denies dysuria or hematuria. SKIN: Denies rash or itching. MUSCULOSKELETAL: Denies back pain,positive for right wrist pain with radiation of pain up ulnar aspect of forearm to elbow, or myalgia. NEUROLOGIC: Denies headache, numbness, or weakness. PSYCHIATRIC: Denies anxiety or depression. All systems reviewed & are unremarkable except as noted in HPI and below PMFSH Past Medical History Medical History Anxiety Dysplasia of cervix, low grade (ADELAIDA 1) HPV test positive LGSIL (low grade squamous intraepithelial dysplasia) Migraine Vaginal delivery x 2 Surgical History Surgical History History of colposcopy with cervical biopsy S/P LEEP (loop electrosurgical excision procedure) 06/23/22 Family History Family History Grandparent History of kidney cancer Diabetes mellitus COPD (chronic obstructive pulmonary disease) CHF (congestive heart failure) Social History Social History Smoking packs per day: 0.5 Smoking cigarettes per day: 10.0 Years smoked: 6 Smoking pack-years: 3.00 Smoking status: Current every day smoker Tobacco type: cigarettes Alcohol intake: current Drinks per week: 2 Substance use: never Substance use type: does not use Lack of Transportation: No Lack of Food: Never True Current Housing: I Have Housing Concerned About Future Housing: No Difficulty Paying Gas/Electric Bills: No Difficulty Paying for Meds: No Currently Unemployed: No Education: Trade/Vocational Certificate Difficulty w/ Childcare or Family Care: No Living arrangements: with family Gender identity (if verbalized by the patient): Female Sexual Orientation (if Verbalized by the Patient): Straight or Heterosexual Spiritual care concerns: No Agree to blood products: Yes Comments At time of signature, agree with nursing past medical, surgical, social and family history. There is no relevant family history pertinent to the presenting c
== END 2023-10-20 19:56 | disposition home or self-care (01) ==
PROVIDERS: Emergency Provider Registered Nurse; PCP Family Medicine
DX: M77.8 Other enthesopathies, not elsewhere classified (principal); F17.210 Nicotine dependence, cigarettes, uncomplicated
CPT/HCPCS: 99213; G0463

== ENCOUNTER 2023-10-25 11:35 | Outpatient (CLI) | payer OTHER, SELFPAY ==
[2023-10-25 12:29] LABS: SARS-CoV-2 RNA PCR Negative (Negative)
[2023-10-25 12:31] LABS: Influenza A QL RT-PCR Negative (Negative); Influenza B QL RT-PCR Negative (Negative); RSV RNA, RT-PCR Positive (Negative)
== END 2023-10-25 11:36 | disposition home or self-care (01) ==
LOC: CHSLAB 11:37
PROVIDERS: PCP Nurse Practitioner Family; Visit Provider Nurse Practitioner Family
DX: R05.9 Cough, unspecified (principal)
CPT/HCPCS: 87637

== ENCOUNTER 2024-08-02 16:33 | Outpatient (CLI) | payer OTHER, SELFPAY ==
[2024-08-02 16:57] LABS: Hemoglobin A1C 4.9 % (<5.7)
[2024-08-02 17:56] LABS: Free T3 2.62 pg/mL (2.18-3.98); Free T4 Free Thyroxine 0.78 ng/dL (0.76-1.46); Thyroid Stimulating Hormone 0.56 uIU/mL (0.36-3.74)
[2024-08-05 06:09] LABS: Thyroid Peroxidase Antibodies <1 IU/mL (<9)
== END 2024-08-02 16:34 | disposition home or self-care (01) ==
PROVIDERS: PCP Nurse Practitioner Family; Visit Provider Internal Medicine Endocrinology, Diabetes & Metabolism
DX: R73.09 Other abnormal glucose (principal); E04.9 Nontoxic goiter, unspecified; E06.9 Thyroiditis, unspecified; E04.1 Nontoxic single thyroid nodule
CPT/HCPCS: 36415; 83036; 83519; 84439; 84443; 84445; 84481

== ENCOUNTER 2024-10-19 14:46 | Emergency (ER) | payer OTHER, SELFPAY ==
[2024-10-19 14:50] VITALS: BP 133/88; PULSE 80; RESP 20; TEMP 36.9; O2SAT 96
--- OUTSIDE RECORDS SUMMARY | 2024-10-19 15:20 | XMS_ITS | Clinical Summary ---
Author Organization [facility] Address [address] [place] [address] Care Team Providers Care Shoe Coverer Name Role Phone Ronaldo Law MD Primary Care Provider [phone] Source Comments [facility] [employer],non-owned Affiliates and Associated Physician Practices is amultiple site organization consisting of ambulatory clinics and hospital sitesin [place], [place], [place] and [place]. This disclosure is being madepursuant to the Care Everywhere program and may not contain all information available regarding this patient. Last updated 18.[facility] [employer] Allergies No known active allergies Medications Be aware that medications may not be up to date on this document. Always verify current medications with the patient. No known medications Social History Tobacco Use Types Packs/Day Years Used Date Smoking Tobacco: Never Alcohol Use Standard Drinks/Week Comments No 0 (1 standard drink = 0.6 oz pur e alcohol) Sex and Gender Information Value Date Recorded Sex Assigned at Not on file Gender Identity Not on file Sexual Orientation Not on file Last Filed Vital Signs Vital Sign Reading Time Taken Comments Blood Pressure 100/66 11/08/2013 12:58 PM [employer] Pulse - - Temperature - - Respiratory Rate - - Oxygen Saturation - - Inhaled Oxygen Concentration - - Weight 61.1 kg (134 lb 12.8 oz) 014 12:58 PM [employer] Height 170.8 cm (5' 7.24 ) 11/08/2013 1 2:58 PM [employer] Body Mass Index 20.96 11/08/2013 12:58 PM [employer] Plan of Treatment Health Maintenance Due Date Last Done Comments PAP SMEAR 1995 HIV SCREENING 12/26/2010 HEPATITIS C SCREENING 12/22/2013 DTAP/TDAP/TD VACCINES (1 - Tdap) 12/26/2014 HEPATITIS B VACCINE (1 of 3 - 19+ 3-dose series) 12/26/2014 COVID-19 VACCINE (1 - 2023-2 5 season) 2024 INFLUENZA VACCINE (#1) 2024 DEPRESSION SCREENING 09/20/2024 ZOSTER VACCINE (1 of 2) 12/26/2045 HIB VACCINE Aged Out No longer eligi ble based on patient's age to complete this topic HPV VACCINE Aged Out No longer eligi ble based on patient's age to complete this topic MENINGOCOCCAL (Group B) VACCINE Aged Out No longer eligible based on patient's age to complete this topic MENINGOCOCCAL VACCINE Aged Out No macey carolee eligible based on patient's age to complete this topic PNEUMOCOCCAL VACCINE Aged Out No long er eligible based on patient's age to complete this topic Care Teams Shoe Coverer Relationship Specialty Start Date End Date Ronaldo Law MD [address] [place] [address] PCP - General Family Medicine 03/28/13
--- OUTSIDE RECORDS SUMMARY | 2024-10-19 15:21 | XMS_ITS | Patient Health Summary ---
Author Organization [facility] Address [address] [place] [address] Care Team Providers Care Chemical Laboratory Chief Name Role Phone Ronaldo Law MD Primary Care Provider [phone] Note from [facility],non-owned Affiliates and Associated Physician Practices is amultiple site organization consisting of ambulatory clinics and hospital sitesin [place], [place], [place] and [place]. This disclosure is being madepursuant to the Care Everywhere program and may not contain all information available regarding this patient. Last updated 18.[facility] [employer] Allergies No known active allergies Medications Be [...] Comments Blood Pressure 100/66 11/08/2013 12:58 PM LIGHT ARMORED RECONNAISSANCE OFFICER Pulse - - Temperature - - Respiratory Rate - - Oxygen Saturation - - Inhaled Oxygen Concentration - - Weight 61.1 kg (134 lb 12.8 oz) 014 12:58 PM LIGHT ARMORED RECONNAISSANCE OFFICER Height 170.8 cm (5' 7.24 ) 11/08/2013 1 2:58 PM LIGHT ARMORED RECONNAISSANCE OFFICER Body Mass Index 20.96 11/08/2013 12:58 PM LIGHT ARMORED RECONNAISSANCE OFFICER Procedures * AUDIOLOGY/TYMPANOMETRY ORDER(Performed 11/16/2013) * UROFLOWMETRY ACC(Performed 11/11/2013) * US BLADDER RESIDUAL ACC(Performed 11/11/2013) * CHLAMYDIA TRACHOMATIS AMPLIFIED PROBE(Performed 11/08/2013) Performed for Dysuria * NEISSERIA GONORRHOEAE AMPLIFIED PROBE(Performed 11/08/2013) Performed for Dysuria * CALCIUM/CREAT RATIO URINE RANDOM PANEL(Performed 11/08/2013) Performed for Dysuria * URINALYSIS REFLEX TO MICROSCOPIC NO CULTURE(Performed 11/08/2013) Performed for Dysuria * CULTURE URINE(Performed 11/08/2013) Performed for Dysuria * URINE MICROSCOPIC ONLY(Performed 11/08/2013) Performed for Dysuria * LAB RESULTS ORDER(Performed 06/02/2013) * UROFLOWMETRY ACC(Performed 06/02/2013) * US BLADDER RESIDUAL ACC(Performed 06/02/2013) * US BLADDER RESIDUAL ACC(Performed 06/02/2013) Performed for Urinary tract infection, site not specified * AUDIOLOGY/TYMPANOMETRY ORDER(Performed 05/25/2013) * URINALYSIS REFLEX TO MICROSCOPIC NO CULTURE(Performed 05/23/2013) Performed for UTI (urinary tract infection) * CULTURE URINE(Performed 05/23/2013) Performed for UTI (urinary tract infection) * URINE MICROSCOPIC ONLY(Performed 05/23/2013) Performed for UTI (urinary tract infection) Results * AUDIOLOGY/TYMPANOMETRY ORDER (11/16/2013 9:45 PM LIGHT ARMORED RECONNAISSANCE OFFICER) Narrative 11/16/2013 9:45 PM LIGHT ARMORED RECONNAISSANCE OFFICER Ordered by an unspecified provider. Transcriptions Document, Scanned - 11/16/2013 9:45 PM CST Scanned Document AUDIOLOGY SERVICES O RDERABLES * UROFLOWMETRY ACC (11/11/2013 8:23 AM LIGHT ARMORED RECONNAISSANCE OFFICER) Narrative Axel Hogan MD - 11/11/2013 8:23 AM LIGHT ARMORED RECONNAISSANCE OFFICER Yesenia Duvall RN ? 11/08/2013 ??2:21 PM Uroflow Voided volume (ml) =127 PVR per bladderscan (ml) = 58 Max flow rate (ml/s) =16 Avg flow rate (ml/s) =16 Voiding time (s) =59 Impression: ??Low voided volume ? Normal uroflow curve Procedure Note Yesenia Duvall RN - 11/08/2013 2:19 PM CST Uroflow Voided volume (ml) =127 PVR per bladderscan (ml) = 58 Max flow rate (ml/s) =16 Avg flow rate (ml/s) =16 Voiding time (s) =59 Impression: Low voided volume Normal uroflow curve Esperanza SOL PROCEDURE ORD ERABLES * US BLADDER RESIDUAL ACC (11/11/2013 8:23 AM LIGHT ARMORED RECONNAISSANCE OFFICER) Narrative Axel Hogan MD - 11/11/2013 8:23 AM LIGHT ARMORED RECONNAISSANCE OFFICER Yesenia Duvall RN ? 11/08/2013 ??2:21 PM Uroflow Voided volume (ml) =127 PVR per bladderscan (ml) = 58 Max flow rate (ml/s) =16 Avg flow rate (ml/s) =16 Voiding time (s) =59 Impression: ??Low voided volume ? Normal uroflow curve Procedure Note Yesenia Duvall RN - 11/08/2013 2:19 PM CST Uroflow Voided volume (ml) =127 PVR per bladderscan (ml) = 58 Max flow rate (ml/s) =16 Avg flow rate (ml/s) =16 Voiding time (s) =59 Impression: Low voided volume Normal uroflow curve Esper[facility] SOL PROCEDURE ORD ERABLES * NEISSERIA GONORRHOEAE AMPLIFIED PROBE (11/08/2013 1:50 PM LIGHT ARMORED RECONNAISSANCE OFFICER) GC Amplified Probe Negative Negative 11/09/2013 10:19 AM LIGHT ARMORED RECONNAISSANCE OFFICER [facility] MICROBIOLOGY Urine URINE / Unknown 11/08/2013 1 :50 PM LIGHT ARMORED RECONNAISSANCE OFFICER 11/08/2013 2:14 PM LIGHT ARMORED RECONNAISSANCE OFFICER Narrative [facility] MICROBIOLOGY - 11/09/2013 10:19 AM LIGHT ARMORED RECONNAISSANCE OFFICER Results based on detection/no detection of ribosomal RNA by amplified method. [facility] MICRO[facility] GY ORDERABLES [facility] MICROBIOLOGY [address] [place] [id number] [place] [address] * CHLAMYDIA TRACHOMATIS AMPLIFIED PROBE (11/08/2013 1:50 PM LIGHT ARMORED RECONNAISSANCE OFFICER) Chlamydia Amplified Probe Negative Negative 11/09/2013 10:24 AM [facility] MICROBIOLOGY Urine URINE / Unknown 11/08/2013 1 :50 PM LIGHT ARMORED RECONNAISSANCE OFFICER 11/08/2013 2:14 PM LIGHT ARMORED RECONNAISSANCE OFFICER Narrative [facility] MICROBIOLOGY - 11/09/2013 10:24 AM LIGHT ARMORED RECONNAISSANCE OFFICER Results based on detection/no detection of ribosomal RNA by amplified method. Esperanza Martínez [facility] - MICROBIOLO GY ORDERABLES Performing Organization Address [facility] Co de Phone Number [facility] MICROBIOLOGY [address] [place] * CALCIUM/CREAT RATIO URINE RANDOM PANEL (11/08/2013 1:50 PM LIGHT ARMORED RECONNAISSANCE OFFICER) Pathologist [facility] Calcium Urine 9.45 mg/dL 11/08/2013 4:31 PM [facility] Creatinine Urine 41.08 mg/dL 11/08/2013 4:31 PM [facility] Calcium/Creatin ine Ratio Urine 0.23 11/08/2013 4:31 PM [facility] Urine URINE SPECIMEN OBTAINED BY CLEAN CATCH PROCEDURE / Unknown 11/08/2013 1:50 PM LIGHT ARMORED RECONNAISSANCE OFFICER 11/08/2013 2:14 PM LIGHT ARMORED RECONNAISSANCE OFFICER Narrative [facility] - 11/08/2013 4:31 PM LIGHT ARMORED RECONNAISSANCE OFFICER Normal ? <0.16 Borderline ??0.16-0.20 Abnormal ?? >0.20 Esperanza Martínez [facility] - URINE CHEM ISTRY ORDERABLES Performing Organization Address [facility] Co de Phone Number [facility] [address] [place] [address] * URINALYSIS ROUTINE AUTO (11/08/2013 1:50 PM LIGHT ARMORED RECONNAISSANCE OFFICER) Only the most recent of2 resultswithin the time period is included. Color UA Yellow Straw, Yellow, Dark Yellow 11/08/2013 3:58 PM [facility] Clarity UA Clear 11/08/2013 3:58 PM LIGHT ARMORED RECONNAISSANCE OFFICER [facility] Specific [place] UA 1.010 1.005 - 1.030 11/08/2013 3:58 PM [facility] pH UA 7.5 5.0 - 8.0 pH 11/08/2013 3:58 PM [facility] Protein UA Negative Negative 11/08/2013 3:58 PM [facility] Blood UA Negative Negative 11/08/2013 3:58 PM [facility] Leukocyte UA Negative Negative 11/08/2013 3:58 PM [facility] Nitrite UA Negative Negative 11/08/2013 3:58 PM [facility] Glucose UA Negative Negative 11/08/2013 3:58 PM [facility] Ketone UA Negative Negative 11/08/2013 3:58 PM [facility] Bilirubin UA Negative Negative 11/08/2013 3:58 PM [facility] Urobilinogen UA 0.2 0.1 - 1.0 EU/dL 11/08/2013 3:58 PM [facility] Urine URINE SPECIMEN OBTAINED BY CLEAN CATCH PROCEDURE / Unknown 11/08/2013 1:50 PM LIGHT ARMORED RECONNAISSANCE OFFICER 11/08/2013 2:14 PM LIGHT ARMORED RECONNAISSANCE OFFICER Esperanza Martínez [facility] - URINALYSIS ORDERABLES Performing Organization Address City/[facility]/ZIP Co de Phone Number [facility] [address] [place] [address] * CULTURE URINE (11/08/2013 1:50 PM LIGHT ARMORED RECONNAISSANCE OFFICER) Only the most recent of2 resultswithin the time period is included. Culture No Growth (<1,000 CFU/mL) 11/10/2013 11:56 AM [facility] MICROBIOLOGY Urine URINE SPECIMEN OBTAINED BY CLEAN CATCH PROCEDURE / Unknown 11/08/2013 1:50 PM LIGHT ARMORED RECONNAISSANCE OFFICER 11/08/2013 2:14 PM LIGHT ARMORED RECONNAISSANCE OFFICER Esperanza Martínez [facility] - MICROBIOLO GY ORDERABLES [facility] MICROBIOLOGY [address] [place] [address], [facility] * URINALYSIS MICROSCOPIC ONLY (11/08/2013 1:50 PM LIGHT ARMORED RECONNAISSANCE OFFICER) Only the most recent of2 resultswithin the time period is included. RBC UA 0-2 0-2, 2-5 # /hpf 11/08/2013 3:58 PM [facility] WBC UA 0-2 0-2, 2-5 # /hpf 11/08/2013 3:58 PM [facility] Bacteria UA None Seen None Seen, Trace 11/08/2013 3:58 PM [facility] Epithelial Cell UA 2-5 0-2, 2-5 11/08/2013 3:58 PM [facility] Urine URINE SPECIMEN OBTAINED BY CLEAN CATCH PROCEDURE / Unknown 11/08/2013 1:50 PM LIGHT ARMORED RECONNAISSANCE OFFICER 11/08/2013 2:14 PM [facility] Esper[facility] LAB - URINALYSIS ORDERABLES Performing Organization Address City/State/[facility] Co de Phone Number [facility] [place] [address] * LAB RESULTS ORDER (06/02/2013 6:55 PM CDT) Narrative 06/02/2013 6:55 PM CDT Ordered by an unspecified provider. Transcriptions Document, Scanned - 06/02/2013 6:55 PM CDT Scanned Document LAB - THERAPEUTIC DR UG MONITORING ORDERABLES * UROFLOWMETRY ACC (06/02/2013 3:56 PM CDT) Narrative Axel Hogan MD - 06/02/2013 3:56 PM CDT Letty Kelly RN ? 05/30/2013 11:49 AM History of resolved vesicoureteral reflux, Since 2012 has had 3 documented UTIs. Uroflow Voided volume (ml) = 449 PVR per bladderscan (ml) = 32 Max flow rate (ml/s) = 42.3 Avg flow rate (ml/s) = 25.1 Voiding time (s) = 18 Impression: ??Normal uroflow curve, normal study. Procedure Note Letty Kelly RN - 05/23/2013 11:46 AM CDT History of resolved vesicoureteral reflux, Since 2012 has had 3documented UTIs. Uroflow Voided volume (ml) = 449 PVR per bladderscan (ml) = 32 Max flow rate (ml/s) = 42.3 Avg flow rate (ml/s) = 25.1 Voiding time (s) = 18 Impression: Normal uroflow curve, normal study. [facility] PROCED[facility] ORD [facility] * US BLADDER RESIDUAL ACC (06/02/2013 3:56 PM CDT) Axel Austin MD - 06/02/2013 3:56 PM CDT Letty Kelly RN ? 05/30/2013 11:49 AM History of resolved vesicoureteral reflux, Since 2012 has had 3 documented UTIs. Uroflow Voided volume (ml) = 449 PVR per bladderscan (ml) = 32 Max flow rate (ml/s) = 42.3 Avg flow rate (ml/s) = 25.1 Voiding time (s) = 18 Impression: ??Normal uroflow curve, normal study. Procedure Note Letty Kelly RN - 05/23/2013 11:46 AM CDT History of resolved vesicoureteral reflux, Since 2012 has had 3documented UTIs. Uroflow Voided volume (ml) = 449 PVR per bladderscan (ml) = 32 Max flow rate (ml/s) = 42.3 Avg flow rate (ml/s) = 25.1 Voiding time (s) = 18 Impression: Normal uroflow curve, normal study. Esperanza Martínez [facility] PROCEDURE ORD ERABLES * US BLADDER RESIDUAL ACC (06/02/2013 3:56 PM CDT) Axel Austin MD - 06/02/2013 3:56 PM CDT Letty Kelly RN ? 05/30/2013 11:49 AM History of resolved vesicoureteral reflux, Since 2012 has had 3 documented UTIs. Uroflow Voided volume (ml) = 449 PVR per bladderscan (ml) = 32 Max flow rate (ml/s) = 42.3 Avg flow rate (ml/s) = 25.1 Voiding time (s) = 18 Impression: ??Normal uroflow curve, normal study. Procedure Note Letty Kelly RN - 05/23/2013 11:46 AM CDT History of resolved vesicoureteral reflux, Since 2012 has had 3documented UTIs. Uroflow Voided volume (ml) = 449 PVR per bladderscan (ml) = 32 Max flow rate (ml/s) = 42.3 Avg flow rate (ml/s) = 25.1 Voiding time (s) = 18 Impression: Normal uroflow curve, normal study. Esperanza Martínez [facility] PROCEDURE ORD ERABLES * AUDIOLOGY/TYMPANOMETRY ORDER (05/25/2013 2:27 AM CDT) Narrative 05/25/2013 2:27 AM CDT Ordered by an unspecified provider. Transcriptions Document, Scanned - 05/25/2013 2:27 AM CDT Scanned Document AUDIOLOGY SERVICES O CHRISTINAERABLES Care Teams Chemical Laboratory Chief Relationship Specialty Start Date End Date Ronaldo Law MD [address] [place] [address] PCP - General Family Medicine 03/28/13
--- OUTSIDE RECORDS SUMMARY | 2024-10-19 15:21 | XMS_ITS | Referral Summary ---
Author Organization [facility] Address [address] [place] [address] Care Team Providers Care Parts Delivery Driver Name Role Phone Ronaldo Law MD Primary Care Provider [phone] Source Comments [facility] [employer],non-owned Affiliates and Associated Physician Practices is amultiple site organization consisting of ambulatory clinics and hospital sitesin [place], [place], [place] and [place]. This disclosure is being madepursuant to the Care Everywhere program and may not contain all information available regarding this patient. Last updated 18.[facility] Allergies No known active allergies Medications Be [...] Comments Blood Pressure 100/66 11/08/2013 12:58 PM BIOFUELS PLANT SUPERINTENDENT Pulse - - Temperature - - Respiratory Rate - - Oxygen Saturation - - Inhaled Oxygen Concentration - - Weight 61.1 kg (134 lb 12.8 oz) 014 12:58 PM BIOFUELS PLANT SUPERINTENDENT Height 170.8 cm (5' 7.24 ) 11/08/2013 1 2:58 PM BIOFUELS PLANT SUPERINTENDENT Body Mass Index 20.96 11/08/2013 12:58 PM BIOFUELS PLANT SUPERINTENDENT Plan of Treatment Not on file Care Teams Parts Delivery Driver Relationship Specialty Start Date End Date Ronaldo Law MD [address] [place] [address] PCP - General Family Medicine 03/28/13
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
--- OUTSIDE RECORDS SUMMARY | 2024-10-19 15:41 | XMS_ITS | Clinical Summary ---
Author Organization [facility] Address [address] [place] [address]. [place], [place] [phone] [place] [address] Care Team Providers Care Machine Operator Assistant Name Role Phone Doreen Reyna MD Primary Care Provider [phone] Allergies No known active allergies Medications No [...] on file Legal Sex Female 5:46 PM CRUDE TESTER Gender Identity Not on file Sexual Orientation Not on file Last Filed Vital Signs Vital Sign Reading Time Taken Comments Blood Pressure 132/76 09/05/2019 1:31 PM CRUDE TESTER Pulse 77 09/05/2019 1:31 PM CRUDE TESTER Temperature 36.7 ??C (98 ??F) 09/05/2019 1:31 PM CRUDE TESTER Respiratory Rate 16 09/05/2019 1:31 PM CRUDE TESTER Oxygen Saturation 94% 09/01/2019 12:29 PM CRUDE TESTER Inhaled Oxygen Concentration - - Weight 81.2 kg (179 lb) 09/01/2019 6:18 AM CRUDE TESTER Height 172.7 cm (5' 8 ) 09/01/2019 6:18 AM CRUDE TESTER Body Mass Index 27.22 09/01/2019 6:18 AM CRUDE TESTER Plan of Treatment Health Maintenance Due Date [...] DESCRIPTION CERVIX 04/07/20 1:36 PM CDT [facility] HPV 16 RNA NEGATIVE NEGATIVE 04/13/2022 3:22 PM CDT [facility] Comment:SEE CYTOLOGY REPORT HPV 18/45 RNA NEGATIVE NEGATIVE 04/13/2022 3:22 PM CDT [facility] Comment:SEE CYTOLOGY REPORT 03/31/2022 8:00 AM CDT us Nissa Brennan WET PROCESS MILLER HEAD ASSISTANT PATHOLOGY/CYTOLOGY ORDERABL ES Final Result [facility] [address] [place] [address], from Last 3 Months or Most Recently Relevant to Health Maintenance Insurance [employer] [place] [address] [place] [address] MEDICAID Advance Directives * Full Code (Latest Code Status on File) Date Activated Date Inactivated Comments 09/01/2019 6:18 AM 09/03/2019 12:58 PM Care Teams Machine Operator Assistant Relationship Specialty Start Date End Date Doreen Reyna MD [address] [place] [phone] PCP - General FAMILY PRACTICE 04/16/19
--- OUTSIDE RECORDS SUMMARY | 2024-10-19 15:41 | XMS_ITS | Referral Summary ---
Author Organization [facility] Address [address] [place] [address] Care Team Providers Care Collection Systems Worker Name Role Phone Ronaldo Law MD Primary Care Provider [phone] Source Comments [facility],non-owned Affiliates and Associated Physician Practices is amultiple site organization consisting of ambulatory clinics and hospital sitesin [place], [place], [place] and [place]. This disclosure is being madepursuant to the Care Everywhere program and may not contain all information available regarding this patient. Last updated 18.[facility] Allergies No known active allergies Medications Be [...] Comments Blood Pressure 100/66 11/08/2013 12:58 PM DICTAPHONE TYPIST Pulse - - Temperature - - Respiratory Rate - - Oxygen Saturation - - Inhaled Oxygen Concentration - - Weight 61.1 kg (134 lb 12.8 oz) 014 12:58 PM DICTAPHONE TYPIST Height 170.8 cm (5' 7.24 ) 11/08/2013 1 2:58 PM DICTAPHONE TYPIST Body Mass Index 20.96 11/08/2013 12:58 PM DICTAPHONE TYPIST Plan of Treatment Not on file Care Teams Collection Systems Worker Relationship Specialty Start Date End Date Ronaldo Law MD [address] [place] [address] PCP - General Family Medicine 03/28/13
--- OUTSIDE RECORDS SUMMARY | 2024-10-19 15:41 | XMS_ITS | Patient Health Summary ---
Author Organization [facility] Address [address] [place] [address] Care Team Providers Care Office Machine Punch Operator Name Role Phone Ronaldo Law MD Primary Care Provider [phone] Note from [facility],non-owned Affiliates and Associated Physician Practices is amultiple site organization consisting of ambulatory clinics and hospital sitesin [place], [place], [place] and [place]. This disclosure is being madepursuant to the Care Everywhere program and may not contain all information available regarding this patient. Last updated 18.[facility] [employer] Allergies No known active allergies Medications Be [...] Comments Blood Pressure 100/66 11/08/2013 12:58 PM SUPERVISOR CLAM BED Pulse - - Temperature - - Respiratory Rate - - Oxygen Saturation - - Inhaled Oxygen Concentration - - Weight 61.1 kg (134 lb 12.8 oz) 014 12:58 PM SUPERVISOR CLAM BED Height 170.8 cm (5' 7.24 ) 11/08/2013 1 2:58 PM SUPERVISOR CLAM BED Body Mass Index 20.96 11/08/2013 12:58 PM SUPERVISOR CLAM BED Procedures * AUDIOLOGY/TYMPANOMETRY ORDER(Performed 11/16/2013) * UROFLOWMETRY [...] Results * AUDIOLOGY/TYMPANOMETRY ORDER (11/16/2013 9:45 PM SUPERVISOR CLAM BED) Narrative 11/16/2013 9:45 PM SUPERVISOR CLAM BED Ordered by an unspecified provider. Transcriptions Document, Scanned - 11/16/2013 9:45 PM CST Scanned Document AUDIOLOGY SERVICES O RDERABLES * UROFLOWMETRY ACC (11/11/2013 8:23 AM SUPERVISOR CLAM BED) Narrative Axel Hogan MD - 11/11/2013 8:23 AM SUPERVISOR CLAM BED Yesenia Duvall RN ? 11/08/2013 ??2:21 PM [...] US BLADDER RESIDUAL ACC (11/11/2013 8:23 AM SUPERVISOR CLAM BED) Narrative Axel Hogan MD - 11/11/2013 8:23 AM SUPERVISOR CLAM BED Yesenia Duvall RN ? 11/08/2013 ??2:21 PM [...] NEISSERIA GONORRHOEAE AMPLIFIED PROBE (11/08/2013 1:50 PM SUPERVISOR CLAM BED) GC Amplified Probe Negative Negative 11/09/2013 10:19 AM SUPERVISOR CLAM BED [facility] Urine URINE / Unknown 11/08/2013 1 :50 PM SUPERVISOR CLAM BED 11/08/2013 2:14 PM SUPERVISOR CLAM BED Narrative [facility] - 11/09/2013 10:19 AM SUPERVISOR CLAM BED Results based on detection/no detection of ribosomal RNA by amplified method. [facility] MICRO[facility] GY ORDERABLES [facility] [address] [place] [id number] [place] [address] * CHLAMYDIA TRACHOMATIS AMPLIFIED PROBE (11/08/2013 1:50 PM SUPERVISOR CLAM BED) Chlamydia Amplified Probe Negative Negative 11/09/2013 10:24 AM [facility] Urine URINE / Unknown 11/08/2013 1 :50 PM SUPERVISOR CLAM BED 11/08/2013 2:14 PM SUPERVISOR CLAM BED Narrative [facility] - 11/09/2013 10:24 AM SUPERVISOR CLAM BED Results based on detection/no detection of ribosomal RNA by amplified method. Esperanza Martínez [facility] MICRO[facility] GY ORDERABLES Performing Organization Address [facility] Co de Phone Number [facility] [address] [place] * CALCIUM/CREAT RATIO URINE RANDOM PANEL (11/08/2013 1:50 PM SUPERVISOR CLAM BED) Pathologist [facility] Calcium Urine 9.45 mg/dL 11/08/2013 4:31 PM [facility] Creatinine Urine 41.08 mg/dL 11/08/2013 4:31 PM [facility] Calcium/Creatin ine Ratio Urine 0.23 11/08/2013 4:31 PM [facility] Urine URINE SPECIMEN OBTAINED BY CLEAN CATCH PROCEDURE / Unknown 11/08/2013 1:50 PM SUPERVISOR CLAM BED 11/08/2013 2:14 PM SUPERVISOR CLAM BED Narrative [facility] - 11/08/2013 4:31 PM SUPERVISOR CLAM BED Normal ? <0.16 Borderline ??0.16-0.20 Abnormal ?? >0.20 Esperanza Martínez [facility] - URINE CHEM ISTRY ORDERABLES Performing Organization Address [facility] Co de Phone Number [facility] [address] [place] [address] * URINALYSIS ROUTINE AUTO (11/08/2013 1:50 PM SUPERVISOR CLAM BED) Only the most recent of2 resultswithin the time period is included. Color UA Yellow Straw, Yellow, Dark Yellow 11/08/2013 3:58 PM [facility] Clarity UA Clear 11/08/2013 3:58 PM SUPERVISOR CLAM BED [facility] Specific [place] UA 1.010 1.005 - 1.030 11/08/2013 3:58 PM [facility] pH UA 7.5 5.0 - 8.0 pH 11/08/2013 3:58 PM [facility] Protein UA Negative Negative 11/08/2013 3:58 PM [facility] Blood UA Negative Negative 11/08/2013 3:58 PM [facility] Leukocyte UA Negative Negative 11/08/2013 3:58 PM [facility] Nitrite UA Negative Negative 11/08/2013 3:58 PM [facility] Glucose UA Negative Negative 11/08/2013 3:58 PM [facility] Ketone UA Negative Negative 11/08/2013 3:58 PM [facility] Bilirubin UA Negative Negative 11/08/2013 3:58 PM [facility] Urobilinogen UA 0.2 0.1 - 1.0 EU/dL 11/08/2013 3:58 PM [facility] Urine URINE SPECIMEN OBTAINED BY CLEAN CATCH PROCEDURE / Unknown 11/08/2013 1:50 PM SUPERVISOR CLAM BED 11/08/2013 2:14 PM SUPERVISOR CLAM BED Esperanza Martínez [facility] - URINALYSIS ORDERABLES Performing Organization Address City/[facility]/ZIP Co de Phone Number [facility] [address] [place] [address] * CULTURE URINE (11/08/2013 1:50 PM SUPERVISOR CLAM BED) Only the most recent of2 resultswithin the time period is included. Culture No Growth (<1,000 CFU/mL) 11/10/2013 11:56 AM [facility] Urine URINE SPECIMEN OBTAINED BY CLEAN CATCH PROCEDURE / Unknown 11/08/2013 1:50 PM SUPERVISOR CLAM BED 11/08/2013 2:14 PM SUPERVISOR CLAM BED Esperanza Martínez [facility] - MICROBIOLO GY ORDERABLES [facility] [address] [place] [address], [facility] * URINALYSIS MICROSCOPIC ONLY (11/08/2013 1:50 PM SUPERVISOR CLAM BED) Only the most recent of2 resultswithin the time period is included. RBC UA 0-2 0-2, 2-5 # /hpf 11/08/2013 3:58 PM [facility] WBC UA 0-2 0-2, 2-5 # /hpf 11/08/2013 3:58 PM [facility] Bacteria UA None Seen None Seen, Trace 11/08/2013 3:58 PM [facility] Epithelial Cell UA 2-5 0-2, 2-5 11/08/2013 3:58 PM [facility] Urine URINE SPECIMEN OBTAINED BY CLEAN CATCH PROCEDURE / Unknown 11/08/2013 1:50 PM SUPERVISOR CLAM BED 11/08/2013 2:14 PM [facility] Esper[facility] - URINALYSIS ORDERABLES Performing Organization Address City/State/[facility] Co de Phone Number [facility] [place] [address] * LAB RESULTS ORDER (06/02/2013 6:55 PM [...] 18 Impression: Normal uroflow curve, normal study. [facility] PROCEDURE ORD ERABLES * US BLADDER [...] Normal uroflow curve, normal study. Esperanza Martínez [facility] PROCEDURE ORD ERABLES * US BLADDER [...] Normal uroflow curve, normal study. Esperanza Martínez APRN-[facility] PROCEDURE ORD ERABLES * AUDIOLOGY/TYMPANOMETRY ORDER (05/25/2013 2:27 AM CDT) Narrative 05/25/2013 2:27 AM CDT Ordered by an unspecified provider. Transcriptions Document, Scanned - 05/25/2013 2:27 AM CDT Scanned Document AUDIOLOGY SERVICES O CHRISTINAERABLES Care Teams Office Machine Punch Operator Relationship Specialty Start Date End Date Ronaldo Law MD [address] [place] [address] PCP - General Family Medicine 03/28/13
--- OUTSIDE RECORDS SUMMARY | 2024-10-19 15:41 | XMS_ITS | Clinical Summary ---
Author Organization [facility] Address [address] [place] [address] Care Team Providers Care Aligner Barrel And Receiver Name Role Phone Ronaldo Law MD Primary Care Provider [phone] Source Comments [facility] [email or web address],non-owned Affiliates and Associated Physician Practices is amultiple site organization consisting of ambulatory clinics and hospital sitesin [place], [place], [place] and [place]. This disclosure is being madepursuant to the Care Everywhere program and may not contain all information available regarding this patient. Last updated 18.[facility] [email or web address] Allergies No known active allergies Medications Be [...] Comments Blood Pressure 100/66 11/08/2013 12:58 PM STENCIL INSPECTOR Pulse - - Temperature - - Respiratory Rate - - Oxygen Saturation - - Inhaled Oxygen Concentration - - Weight 61.1 kg (134 lb 12.8 oz) 014 12:58 PM STENCIL INSPECTOR Height 170.8 cm (5' 7.24 ) 11/08/2013 1 2:58 PM STENCIL INSPECTOR Body Mass Index 20.96 11/08/2013 12:58 PM STENCIL INSPECTOR Plan of Treatment Health Maintenance Due Date [...] age to complete this topic Care Teams Aligner Barrel And Receiver Relationship Specialty Start Date End Date Ronaldo Law MD [address] [place] [address] PCP - General Family Medicine 03/28/13
[2024-10-19 15:52] LABS: Strep Group A RT-PCR NOT DETECTED (Negative)
[2024-10-19 15:54] LABS: SARS-CoV-2 RNA PCR Negative (Negative)
[2024-10-19 16:00] LABS: Influenza A QL RT-PCR Positive (Negative); Influenza B QL RT-PCR Negative (Negative); RSV RNA, RT-PCR Negative (Negative)
--- NOTE | 2024-10-19 16:09 | ED_ITS ---
HPI - URI/Sore Throat General Chief Complaint: Upper Respiratory Infection Stated Complaint: flu symptoms Source: patient and family Mode of arrival: ambulatory Limitations: no limitations History of Present Illness HPI Narrative: This is a 28-year-old female with no significant past medical history presents with a 1 day history of cough nasal congestion fever with no shortness of breath no audible wheezing no nausea vomiting no abdominal pain with a mild sore throat. MD elicited complaint: fever, cough, sore throat, rhinorrhea and nasal congestion Onset (ago): day(s) Related Data Home Medications ?Medication ?Instructions ?Recorded ?Confirmed ?Last Taken ?Type levonorgestrel (Mirena) 1 device intrauterine ONCE 05/21/23 09/01/24 Unknown History buspirone 15 mg tablet mg PO 09/01/24 09/01/24 Unknown History propranolol 10 mg tablet mg PO 09/01/24 09/01/24 Unknown History Allergies Allergy/AdvReac Type Severity Reaction Status Date / Time No Known Allergies Allergy Verified 10/19/24 16:09 Review of Systems Review of Systems: All systems reviewed & are unremarkable except as noted in HPI and below PMFSH Past Medical History Medical History Dysplasia of cervix, low grade (ADELAIDA 1) Migraine Anxiety Vaginal delivery x 2 HPV test positive LGSIL (low grade squamous intraepithelial dysplasia) Surgical History Surgical History S/P LEEP (loop electrosurgical excision procedure) 06/23/22 History of colposcopy with cervical biopsy Family History Family History Grandparent History of kidney cancer Diabetes mellitus COPD (chronic obstructive pulmonary disease) CHF (congestive heart failure) Social History Social History Smoking packs per day: 0.5 Smoking cigarettes per day: 10.0 Years smoked: 6 Smoking pack-years: 3.00 Smoking status: Current every day smoker Tobacco type: cigarettes Alcohol intake: current Drinks per week: 2 Substance use: never Substance use type: does not use Lack of Transportation: No Lack of Food: Never True Current Housing: I Have Housing Concerned About Future Housing: No Difficulty Paying Gas/Electric Bills: No Difficulty Paying for Meds: No Currently Unemployed: No Education: Trade/Vocational Certificate Difficulty w/ Childcare or Family Care: No Living arrangements: with family Gender identity (if verbalized by the patient): Female Sexual Orientation (if Verbalized by the Patient): Straight or Heterosexual Spiritual care concerns: No Agree to blood products: Yes Exam Const: General: healthy appearing and no acute distress Nutritional Appearance: well nourished Orientation/consciousness: patient oriented x3 Limitations: no limitations HENMT: Head: normal to inspection Other: Nasal congestion Eyes: Conjunctivae: conjunctivae normal Neck: Neck: normal visual inspection, no lymphadenopathy and no meningeal signs Chest: Chest palpation & inspection: normal inspection of the chest Resp: Effort & Inspection: normal respiratory effort Auscultation: clear to auscultation bilaterally Cardio: Rate: regular rate Rhythm: regular rhythm GI: GI Palp: Yes Soft to palpation Auscultation: normal bowel sounds : General: Yes bladder normal to palpation Neuro: General: patient oriented x3, moves all extremities, no meningeal signs and no focal motor deficits Course Course Emergency Course: she had a negative strep, COVID and RSV were negative, influenza A positive and dose of Tamiflu he was administered in the emergency department. Vital Signs Vital signs: Vital Signs Temperature 36.9 C 10/19/24 14:50 Pulse Rate 80 10/19/24 14:50 Respiratory Rate 10/19/24 14:50 Blood Pressure 133/88 10/19/24 14:50 Pulse Oximetry 96 10/19/24 14:50 Oxygen Delivery Room Air 10/19/24 14:50 Temperature 36.9 C 10/19/24 14:50 Pulse Rate 80 10/19/24 14:50 Respiratory Rate 20 10/19/24 14:50 Blood Pressure 133/88 10/19/24 14:50 Pulse Oximetry 96 10/19/24 14:50 Oxygen Delivery Room Air 10/19/24 14:50 MDM - URI/Sore Throat Lab Data Labs: Lab Results 10/19/24 Range/Units 14:47 Influenza A (RT-PCR) Positive A (Negative) Influenza B (RT-PCR) Negative (Negative) RSV (RT-PCR) Negative (Negative) SARS-CoV-2 RNA (RT-PCR) Negative (Negative) Group A Strep (PCR) Not detected (Negative) Critical Care Time Critical Care Time Critical Care Time: No Discharge Plan Discharge Clinical Impression: Influenza A Patient Disposition: Home, Self-Care Condition: Stable Instructions: Antibiotic Form, Influenza (ED) Additional Instructions: advised to take medication as prescribed and to follow with primary if symptoms persist or worsen. Patient Language: Welsh Prescriptions: New oseltamivir [Tamiflu] 75 mg capsule 75 mg PO Q12H 5 Days Qty: 10 0RF No Action Mirena 21 mcg/24 hours (8 yrs) 52 mg intrauterine device 1 device intrauterine ONCE Rx Instructions: 10/2019 buspirone 15 mg tablet PO propranolol 10 mg tablet PO escitalopram oxalate [Lexapro] 10 mg tablet 10 mg PO DAILY Qty: 90 1RF ondansetron HCl 4 mg tablet See Rx Instructions .ROUTE .COMPLEX Qty: 10 0RF Dose Instruction: TAKE ONE TABLET BY MOUTH EVERY EIGHT HOURS NEEDED VOMITING FOR 4 DAYS Rx Instructions: TAKE ONE TABLET BY MOUTH EVERY EIGHT HOURS NEEDED VOMITING FOR 4 DAYS sumatriptan succinate 25 mg tablet See Rx Instructions .ROUTE .COMPLEX Qty: 10 0RF Dose Instruction: TAKE ONE TABLET BY MOUTH AT ONSET OF HEADACHE MAY TAKE 1 TABLET IN 2 HOURS IF NO RELIEF DO NOT TAKE MORE THAN 4 Rx Instructions: TAKE ONE TABLET BY MOUTH AT ONSET OF HEADACHE MAY TAKE 1 TABLET IN 2 HOURS IF NO RELIEF DO NOT TAKE MORE THAN 4 Follow-up/Referrals: Teja Gutierrez DO [Primary Care Provider] - Time of Disposition: 16:12
[2024-10-19] MEDS: OSELTAMIVIR PHOSPHATE 75 MG CAPSULE PO (16:19)
[2024-10-19 16:23] VITALS: BP 133/88; PULSE 84; RESP 18; TEMP 37.2; O2SAT 95
== END 2024-10-19 16:23 | disposition home or self-care (01) ==
PROVIDERS: Emergency Provider Emergency Medicine; PCP Family Medicine
DX: J10.1 Influenza due to other identified influenza virus with other respiratory manifestations (principal); F17.210 Nicotine dependence, cigarettes, uncomplicated; Z20.822 Contact with and (suspected) exposure to COVID-19
CPT/HCPCS: 87637; 87651; 99283; A9270

== ENCOUNTER 2025-01-24 08:55 | Emergency (ER) | payer OTHER, SELFPAY ==
[2025-01-24] VITALS (12 sets, daily range): BP systolic 124–149; BP diastolic 89–102; PULSE 60–85; RESP 10–22; TEMP 36.5; O2SAT 97–100
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
--- NOTE | 2025-01-24 09:01 | ECG_ITS ---
Test Date: 2025-01-24 09:07:07 Measurements Intervals [place] Rate: 66 P: 81 NE: 108 QRS: 76 QRSD: 90 T: 71 QT: 388 QTc: 408 Interpretive Statements SINUS RHYTHM WITH SHORT NE INTERVAL No previous ECG available for comparison Electronically Signed On 01-24-2025 13:59:18 CDT by Ray Almaguer M.D.
--- NOTE | 2025-01-24 09:02 | ED.GENADULT ---
HPI - General Adult General Chief complaint: Chest Pain Stated complaint: chest pain; palpitations Time Seen by Provider: 01/24/25 09:01 Source: patient Mode of arrival: ambulatory Limitations: no limitations History of Present Illness HPI narrative: 29-year-old female with a history of smoking,anxiety / depression, migraine, cervical dysplasia status post LEEP presents to the ED with a 3 day history of -- substernal chest pain which is associated with shortness . Pain is unprovoked. Pain radiates to her back, neck and shoulders. -- Nausea vomiting and diarrhea. She did not have any vomiting today but has had diarrhea. No abdominal pain. No fever or chills -- noted to be hypertensive with a blood pressure of 138/102 Onset (ago): day(s) ( 3 days) Radiation: back and neck Severity scale (1-10): 7 Quality: aching Pain Consistency: intermittent ( pain is unprovoked. Last for an hour with spontaneous resolution.) Relieving factors: none Exacerbating factors: none Associated symptoms: nausea/vomiting and shortness of breath Treatments prior to arrival: none Related Data Home Medications ?Medication ?Instructions ?Recorded ?Confirmed ?Last Taken ?Type propranolol 10 mg tablet mg PO 09/01/24 09/01/24 Unknown History buspirone 30 mg tablet 30 mg PO BID 11/24/24 Unknown History escitalopram oxalate 20 mg tablet 20 mg PO DAILY 11/24/24 Unknown History (Lexapro) Allergies Allergy/AdvReac Type Severity Reaction Status Date / Time No Known Allergies Allergy Verified 11/24/24 09:04 Review of Systems Review of Systems: All systems reviewed & are unremarkable except as noted in HPI and below Constitutional: Constitutional: Reports as per HPI and Reports no additional constitutional complaints Eyes: Eyes: Reports as per HPI and Reports no additional eye complaints ENT: Reports system reviewed and no additional complaints, except as documented and Reports as per HPI Cardiovascular: Cardiovascular: Reports as per HPI, Reports no additional cardiovascular complaints and Reports chest pain Respiratory: Respiratory: Reports as per HPI, Reports no additional respiratory complaints and Reports dyspnea Gastrointestinal: Gastrointestinal: Reports as per HPI, Reports no additional gastrointestinal complaints, Reports diarrhea, Reports nausea and Reports vomiting Genitourinary: Genitourinary: Reports no additional female genitourinary complaints Musculoskeletal: Musculoskeletal: Reports no additional musculoskeletal complaints and Reports as per HPI Integumentary/Breasts: Skin/Breast: Reports system reviewed and no additional complaints, except as docu and Reports as per HPI Neurologic: Reports system reviewed and no additional complaints, except as documented and Reports as per HPI Psychiatric: Psychiatric: Reports no additional psychiatric complaints and Reports as per HPI Endocrine: Endocrine: Reports no additional endocrine complaints and Reports as per HPI Hematologic/Lymphatic: Hematologic/Lymphatic: Reports no additional hematologic/lymphatic complaints and Reports as per HPI Allergic/Immunologic: Allergic/Immunologic: Reports no additional allergic/immunologic complaints and Reports as per HPI [facility] Past Medical History Medical History Dysplasia of cervix, low grade (ADELAIDA 1) Migraine Anxiety Vaginal delivery x 2 HPV test positive LGSIL (low grade squamous intraepithelial dysplasia) Surgical History Surgical History S/P LEEP (loop electrosurgical excision procedure) 06/23/22 History of colposcopy with cervical biopsy Family History Family History Grandparent History of kidney cancer Diabetes mellitus COPD (chronic obstructive pulmonary disease) CHF (congestive heart failure) Social History Social History Smoking packs per day: 0.5 Smoking cigarettes per day: 10.0 Years smoked: 6 Smoking pack-years: 3.00 Smoking status: Current every day smoker Tobacco type: cigarettes Alcohol intake: current Drinks per week: 2 Substance use: never Substance use type: does not use Lack of Transportation: No Lack of Food: Never True Current Housing: I Have Housing Concerned About Future Housing: No Difficulty Paying Gas/Electric Bills: No Difficulty Paying for Meds: No Currently Unemployed: No Education: Trade/Vocational Certificate Difficulty w/ Childcare or Family Care: No Living arrangements: with family Gender identity (if verbalized by the patient): Female Sexual Orientation (if Verbalized by the Patient): Straight or Heterosexual Spiritual care concerns: No Agree to blood products: Yes Exam Const: General: no acute distress Orientation/consciousness: patient oriented x3 Limitations: no limitations HENMT: Head: normal to inspection Ears: external ears normal Face/Nose/Sinus: Normal external nose present Face and sinus: normal facial exam Mouth: Yes Normal oral and palatal mucosa present Throat: posterior oropharynx normal Eyes: Conjunctivae: conjunctivae normal Pupils: Equal, round and reactive pupils present EOM: EOMs intact bilaterally Direct Ophthalmoscopy: no photophobia Neck: Neck: normal visual inspection, no lymphadenopathy and no meningeal signs Chest: Chest palpation & inspection: normal inspection of the chest Resp: Effort & Inspection: normal respiratory effort Auscultation: clear to auscultation bilaterally Cardio: Rate: regular rate Rhythm: regular rhythm GI: GI Palp: Yes Soft to palpation Auscultation: normal bowel sounds : General: Yes no CVA tenderness Back/Spine/Pelvis: Back: no CVA tenderness Skin: General skin exam: normal color Rashes: no rashes Wounds: no wounds Neuro: General: patient oriented x3, moves all extremities, no meningeal signs, no focal motor deficits and CN's II-XI intact bilaterally Cranial nerves: Yes Nystagmus not present Speech: normal speech Gait exam (Neuro): Normal gait present Extrem: General: normal to inspection and no clubbing, cyanosis or edema Psych: Mental Status: mental status grossly normal Affect: Anxious affect present Attitude: cooperative Course Course Emergency Course: chest pain shortness of breath nausea/vomiting /diarrhea hypertension-- the lowest readings in the ED were 132/91 Vital Signs Vital signs: Vital Signs Temperature 36.5 C 01/24/25 08:55 Pulse Rate 74 01/24/25 08:55 Respiratory Rate 16 01/24/25 08:55 Blood Pressure 131/99 H 01/24/25 08:55 Pulse Oximetry 100 01/24/25 08:55 Oxygen Delivery Room Air 01/24/25 08:55 Temperature 36.5 C 01/24/25 08:55 Pulse Rate 63 01/24/25 10:16 Respiratory Rate 18 01/24/25 10:16 Blood Pressure 127/92 H 01/24/25 10:16 Pulse Oximetry 98 01/24/25 10:16 Oxygen Delivery Room Air 01/24/25 08:55 Medical Decision Making [facility] Narrative Medical decision making narrative: anxiety gastroenteritis hypertension Differential Diagnosis Differential Diagnosis: infectious enteritis Vital Signs Vital Signs: Vital Signs Temperature 36.5 C 01/24/25 08:55 Pulse Rate 74 01/24/25 08:55 Respiratory Rate 16 01/24/25 08:55 Blood Pressure 131/99 H 01/24/25 08:55 Pulse Oximetry 100 01/24/25 08:55 Oxygen Delivery Room Air 01/24/25 08:55 Temperature 36.5 C 01/24/25 08:55 Pulse Rate 63 01/24/25 10:16 Respiratory Rate 18 01/24/25 10:16 Blood Pressure 127/92 H 01/24/25 10:16 Pulse Oximetry 98 01/24/25 10:16 Oxygen Delivery Room Air 01/24/25 08:55 Lab Data 01/24/25 09:34 01/24/25 09:34 Labs: Lab Results 01/24/25 Range/Units 09:34 WBC 7.2 (4.8-10.8) K/mm3 RBC 4.85 (4.20-5.40) M/mm3 Hgb 14.8 (12.0-15.0) g/dL Hct 45.5 (35.0-49.0) % MCV 93.8 (78.0-102.0) fL MCH 30.5 (27.0-31.0) pg MCHC 32.5 (32-36) g/dL RDW 11.5 L (11.6-14.4) % Plt Count 172 (150-420) K/mm3 MPV 11.6 (9.2-11.8) fl Immature Gran % (Auto) 0.3 H (0.0-0.0) % Neut % (Auto) 63.2 (50.0-70.0) % Lymph % (Auto) 30.9 (18.0-42.0) % [place] % (Auto) 4.8 (2.0-11.0) % Eos % (Auto) 0.4 L (1.0-6.0) % Baso % (Auto) 0.4 (0.0-1.0) % Lymph # (Auto) 2.21 (1.10-4.50) K/mm3 [place] # (Auto) 0.34 (0.10-0.90) K/mm3 Eos # (Auto) 0.03 (0.02-0.50) K/mm3 Baso # (Auto) 0.03 (0.00-0.10) K/mm3 Abs Immat Gran (auto) 0.02 H (0.00-0.00) K/mm3 Absolute Neuts (auto) 4.52 (1.70-7.20) K/mm3 Absolute Nucleated RBC 0.00 (0.00-0.00) K/mm3 Nucleated RBC % 0.0 (0-0.0) % Sodium 138 (136-145) mmol/L Potassium 3.7 (3.5-5.1) mmol/L Chloride 101 (98-108) mmol/L Carbon Dioxide 28 (21-32) mmol/L Anion Gap 9 (4-12) mmol/L BUN 6 L (7-18) mg/dL Creatinine 0.82 (0.55-1.02) mg/dL Estim Creat Clear Calc 82 ml/min Estimated GFR > 60 (59 - ) Glucose 82 (70-99) mg/dL Calculated Osmolality 282 L (285-295) mOsm/kg Lactic Acid 1.1 (0.4-2.0) mmol/L Calcium 9.5 (8.5-10.1) mg/dL Total Bilirubin 0.9 (0.00-1.00) mg/dL AST < 10 L (15-37) U/L ALT 10 L (14-59) U/L Alkaline Phosphatase 64 (46-116) U/L Total Creatine Kinase 53 (26-192) U/L Troponin I 4.2 (0.00-60.4) ng/L Total Protein Pending Albumin 4.8 (3.4-5.0) g/dL Urine Color Light yellow (Yellow) Urine Appearance Clear (Clear) Urine pH 6.5 (5.0-8.0) Ur Specific [place] 1.010 (1.010-1.020) Urine Protein Negative (Negative) Urine Glucose (UA) Negative (Negative) Urine Ketones Negative (Negative) Ur Blood (Man) Negative (Negative) Urine Nitrate Negative (Negative) Urine Bilirubin Negative (Negative) Urine Urobilinogen 0.2 (0.2-1.0) mg/dL Leukocyte Esterase Rfl Negative (Negative) LEXY/UL Urine Test Negative ECG Data EKG #1: ECG completion date: 01/24/25 ECG completion time: 09:07 Interpretation: normal sinus rhythm. Normal axis. No ST-T wave changes noted. Discharge Plan Discharge Clinical Impression: Anxiety Hypertension Qualifiers: Hypertension type: unspecified Qualified Code(s): I10 - Essential (primary) hypertension Patient Disposition: Home Condition: Stable Instructions: Antibiotic Form, Hypertension (ED), Anxiety (ED) Patient Language: Syriac Prescriptions: No Action buspirone 30 mg tablet 30 mg PO BID escitalopram oxalate [Lexapro] 20 mg tablet 20 mg PO DAILY propranolol 10 mg tablet PO ondansetron HCl 4 mg tablet See Rx Instructions .ROUTE .COMPLEX Qty: 10 0RF Dose Instruction: TAKE ONE TABLET BY MOUTH EVERY EIGHT HOURS NEEDED VOMITING FOR 4 DAYS Rx Instructions: TAKE ONE TABLET BY MOUTH EVERY EIGHT HOURS NEEDED VOMITING FOR 4 DAYS medroxyprogesterone [Depo-Provera] 150 mg/mL syringe 150 mg IM [id number] Qty: 1 3RF sumatriptan succinate 25 mg tablet See Rx Instructions .ROUTE .COMPLEX Qty: 10 0RF Dose Instruction: TAKE ONE TABLET BY MOUTH AT THE ONSET ON HEADACHE MAY TAKE ONE TABLET IN 2 HOURS IF NO RELIEF DO NOT TAKE MORE THAN 4 Rx Instructions: TAKE ONE TABLET BY MOUTH AT THE ONSET ON HEADACHE MAY TAKE ONE TABLET IN 2 HOURS IF NO RELIEF DO NOT TAKE MORE THAN 4 Follow-up/Referrals: Teja Gutierrez DO [Primary Care Provider] - Time of Disposition: 10:34
--- OUTSIDE RECORDS SUMMARY | 2025-01-24 09:12 | XMS_ITS | Clinical Summary ---
Author Organization [facility] Address [address] [address] Care Team Providers Care Chemical Production Technician Name Role Phone Ronaldo Law MD Primary Care Provider [phone] Source Comments [facility] [employer],non-owned Affiliates and Associated Physician Practices is amultiple site organization consisting of ambulatory clinics and hospital sitesin [place], [place], [place] and [place]. This disclosure is being madepursuant to the Care Everywhere program and may not contain all information available regarding this patient. Last updated 18.[facility] [employer] Allergies No known active allergies Medications * Be aware that medications may not be up to date on this document. Alwaysverify current medications with the patient. No known medications Social History Tobacco Use Types Packs/Day Years Used Date Smoking Tobacco: Never Alcohol Use Standard Drinks/Week Comments No 0 (1 standard drink = 0.6 oz pur e alcohol) Comments No Sex and Gender Information Value Date Recorded Sex Assigned at Not on file Legal Sex Female 5:40 AM ANALYTICAL TECH Gender Identity Not on file Sexual Orientation Not on file Last Filed Vital Signs Vital Sign Reading Time Taken Comments Blood Pressure 100/66 11/08/2013 12:58 PM ANALYTICAL TECH Pulse - - Temperature - - Respiratory Rate - - Oxygen Saturation - - Inhaled Oxygen Concentration - - Weight 61.1 kg (134 lb 12.8 oz) 014 12:58 PM ANALYTICAL TECH Height 170.8 cm (5' 7.24 ) 11/08/2013 1 2:58 PM ANALYTICAL TECH Body Mass Index 20.96 11/08/2013 12:58 PM ANALYTICAL TECH Plan of Treatment Health Maintenance Due Date Last Done Comments HIV SCREENING 12/26/2010 HEPATITIS C SCREENING 12/22/2013 DTAP/TDAP/TD VACCINES (1 - Tdap) 12/26/2014 HEPATITIS B VACCINE (1 of 3 - 19+ 3-dose series) 12/26/2014 COVID-19 VACCINE (1 - 2023-2 5 season) 2024 DEPRESSION SCREENING 09/20/2024 INFLUENZA VACCINE (Season Ended) 2025 ZOSTER VACCINE (1 of 2) 12/26/2045 HIB VACCINE Aged Out No longer eligi ble based on patient's age to complete this topic HPV VACCINE Aged Out No longer eligi ble based on patient's age to complete this topic MENINGOCOCCAL (Group B) VACC INE SHARED DECISION-MAKING Aged Out No longer eligibl e based on patient's age to complete this topic MENINGOCOCCAL GROUPS A/C/Y/W VACCINE Aged Out No longer eligible b ased on patient's age to complete this topic PNEUMOCOCCAL VACCINE Aged Out No long er eligible based on patient's age to complete this topic Insurance [facility] MEDICAID - [place] Care Teams Chemical Production Technician Relationship Specialty Start Date End Date Ronaldo Law MD [address] [place] [address] PCP - General Family Medicine 03/28/13
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
[2025-01-24 09:55] LABS: Basophils Absolute Auto 0.03 K/mm3 (0.00-0.10); Basophils Percent Auto 0.4 % (0.0-1.0); Eosinophils Absolute Auto 0.03 K/mm3 (0.02-0.50); Eosinophils Percent Auto 0.4 % (1.0-6.0); Hematocrit 45.5 % (35.0-49.0); Hemoglobin 14.8 g/dL (12.0-15.0); Immature Granulocyte Absolute 0.02 K/mm3 (0.00-0.00); Immature Granulocyte Percent A 0.3 % (0.0-0.0); Lymphocytes Absolute Auto 2.21 K/mm3 (1.10-4.50); Lymphocytes Percent Auto 30.9 % (18.0-42.0); Mean Corpuscular HGB Conc 32.5 g/dL (32-36); Mean Corpuscular Hemoglobin 30.5 pg (27.0-31.0); Mean Corpuscular Volume 93.8 fL (78.0-102.0); Mean Platelet Volume 11.6 fl (9.2-11.8); Monocytes Absolute Auto 0.34 K/mm3 (0.10-0.90); Monocytes Percent Auto 4.8 % (2.0-11.0); Neutrophils Absolute Auto 4.52 K/mm3 (1.70-7.20); Neutrophils Percent Auto 63.2 % (50.0-70.0); Platelet Count Result 172 K/mm3 (150-420); Red Blood Count 4.85 M/mm3 (4.20-5.40); Red Cell Distribution Width 11.5 % (11.6-14.4); White Blood Count 7.2 K/mm3 (4.8-10.8)
[2025-01-24 09:56] LABS: Add Urine Microscopic? NO; Appearance Urine Clear (Clear); Bilirubin Urine Negative (Negative); Blood Urine Negative (Negative); Color Urine Light Yellow (Yellow); Glucose Urine UA Negative (Negative); Ketones Urine Negative (Negative); Leukocyte Esterase Ur Negative LEU/UL (Negative); Nitrate Urine Negative (Negative); Protein Urine Negative (Negative); Urobilinogen Urine 0.2 mg/dL (0.2-1.0); pH Urine 6.5 (5.0-8.0)
[2025-01-24 10:00] LABS: Pregnancy On Board Control Positive; Urine Pregnancy Test Negative
[2025-01-24 10:14] LABS: Lactic Acid Reflex 1.1 mmol/L (0.4-2.0)
[2025-01-24 10:16] LABS: Alanine Aminotransferase 10 U/L (14-59); Albumin Level 4.8 g/dL (3.4-5.0); Alkaline Phosphatase 64 U/L (46-116); Anion Gap 9 mmol/L (4-12); Aspartate Amino Transferase < 10 U/L (15-37); Bilirubin,Total 0.9 mg/dL (0.00-1.00); Blood Urea Nitrogen 6 mg/dL (7-18); Calcium 9.5 mg/dL (8.5-10.1); Carbon Dioxide 28 mmol/L (21-32); Chloride 101 mmol/L (98-108); Creatine Kinase 53 U/L (26-192); Estimated CRCL calculation 82 ml/min; Estimated Glomerular Filt Rate > 60; Glucose 82 mg/dL (70-99); Osmolality Calculated 282 mOsm/kg (285-295); Potassium 3.7 mmol/L (3.5-5.1); Sodium 138 mmol/L (136-145)
--- OUTSIDE RECORDS SUMMARY | 2025-01-24 10:17 | XMS_ITS | Clinical Summary ---
Author Organization [facility] Address [address] [place] [address] Care Team Providers Care Systems Development Manager Name Role Phone Ronaldo Law MD Primary Care Provider [phone] Source Comments [facility] [employer],non-owned Affiliates and Associated Physician Practices is amultiple site organization consisting of ambulatory clinics and hospital sitesin [place], [place], [place] and [place]. This disclosure is being madepursuant to the Care Everywhere program and may not contain all information available regarding this patient. Last updated 18.[facility] [employer] Allergies No known active allergies Medications * [...] on file Legal Sex Female 5:40 AM TECHNICAL SALES SPECIALIST Gender Identity Not on file Sexual Orientation Not on file Last Filed Vital Signs Vital Sign Reading Time Taken Comments Blood Pressure 100/66 11/08/2013 12:58 PM TECHNICAL SALES SPECIALIST Pulse - - Temperature - - Respiratory Rate - - Oxygen Saturation - - Inhaled Oxygen Concentration - - Weight 61.1 kg (134 lb 12.8 oz) 014 12:58 PM TECHNICAL SALES SPECIALIST Height 170.8 cm (5' 7.24 ) 11/08/2013 1 2:58 PM TECHNICAL SALES SPECIALIST Body Mass Index 20.96 11/08/2013 12:58 PM TECHNICAL SALES SPECIALIST Plan of Treatment Health Maintenance Due Date [...] patient's age to complete this topic Insurance [facility] MEDICAID - [place] Care Teams Systems Development Manager Relationship Specialty Start Date End Date Ronaldo Law MD [address] [place] [address] PCP - General Family Medicine 03/28/13
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
[2025-01-24 10:29] LABS: Troponin I 4.2 ng/L (0.00-60.4)
== END 2025-01-24 10:44 | disposition home or self-care (01) ==
PROVIDERS: Emergency Provider Internal Medicine Critical Care Medicine; PCP Family Medicine
DX: F41.9 Anxiety disorder, unspecified (principal); I10 Essential (primary) hypertension; F17.210 Nicotine dependence, cigarettes, uncomplicated
CPT/HCPCS: 36415; 71045; 80053; 81003; 81025; 82550; 83605; 84484; 85025; 93005; 99284

== ENCOUNTER 2025-08-08 13:03 | Outpatient (CLI) | payer OTHER, SELFPAY ==
[2025-08-08 13:46] LABS: Free T4 Free Thyroxine 1.25 ng/dL (0.78-2.19)
[2025-08-08 14:00] LABS: Thyroid Stimulating Hormone 0.646 uIU/mL (0.465-4.680)
== END 2025-08-08 13:04 | disposition home or self-care (01) ==
LOC: CHSLAB 13:04
PROVIDERS: PCP Family Medicine; Visit Provider Internal Medicine Endocrinology, Diabetes & Metabolism
DX: E55.9 Vitamin D deficiency, unspecified (principal); E04.1 Nontoxic single thyroid nodule
CPT/HCPCS: 36415; 82306; 84439; 84443

== ENCOUNTER 2025-08-10 12:51 | Outpatient (CLI) | payer OTHER, SELFPAY ==
--- NOTE | ~2025-08-10 | US_ITS ---
EXAMINATION: US thyroid DATE: 08/10/2025 13:18 INDICATION: Nontoxic single thyroid nodule TECHNIQUE: Multiple ultrasound images of the thyroid were obtained. COMPARISON: 05/25/2023 FINDINGS: The right thyroid lobe measures 6.3 x 1.9 x 1.8 cm. The left thyroid lobe measures 5.9 x 2.0 x 1.9 cm. There is unchanged diffuse coarsened echotexture throughout the thyroid. There are small anechoic cystic entire RADS 1 nodules measuring 7 mm the inferior left thyroid lobe and 4 mm at the inferior right thyroid lobe. There is also a 7 mm mixed solid and cystic nodule with isoechoic solid component, smooth margins and without echogenic foci. (TI-RADS 2, not suspicious, no FNA recommended) IMPRESSION: 1. Subcentimeter TI RADS 1 and TI RADS 2 nodules which require no further follow-up or biopsy. Reviewed, dictated and finalized at location A. AND SHANK DEPARTMENT SUPERVISOR IMPRESSION: 1. Subcentimeter TI RADS 1 and TI RADS 2 nodules which require no further follo w-up or biopsy.
== END 2025-08-10 12:52 | disposition home or self-care (01) ==
LOC: CHSIMG 12:53
PROVIDERS: PCP Nurse Practitioner Family; Visit Provider Internal Medicine Endocrinology, Diabetes & Metabolism
DX: E04.2 Nontoxic multinodular goiter (principal)
CPT/HCPCS: 76536